=== PATIENT | female | born 1975 | race Caucasian/White ===

== ENCOUNTER 2016-12-12 19:34 | Emergency (ER) | payer OTHER ==
[2016-12-12 20:07] VITALS: TEMP 98; BMI 31.0
[2016-12-12] MEDS ORDERED: SODIUM CHLORIDE 0.9% 1000 ML INFUS.BAG IV ONE (21:11)
--- NOTE | 2016-12-12 21:11 | PDOC ---
History of Present Illness - General History Source: Patient, Old Records Exam Limitations: No Limitations - History of Present Illness Initial Comments: The patient is a 41 year old female with a significant past medical history of migraines, HTN and non-insulin dependent diabetes who presents to the emergency department from Urgent Care with heavy vaginal bleeding for 3 days. The patient states that she has used 6 pads today and that her bleeding is with clots. She states that her LMP was 3 weeks ago and was 2 weeks long which is abnormal for her (normally 5-8 days). The patient reports associated dizziness and headache. The patient did not try to treat symptoms at home. The patient did not report any alleviating or exacerbating factors. The patient denies fever, chills, and sweats. The patient denies vomiting, and diarrhea. The patient denies chest pain, cough, and shortness of breath. OBGYN: Dr. Nash Shabazz [phone] PAST MEDICAL HISTORY: HTN and diabetes PAST SURGICAL HISTORY: No significant history reported FAMILY HISTORY: No pertinent history reported SOCIAL HISTORY: None reported ALLERGIES: As per nursing notes MEDICATIONS: Reviewed <Aj Matthew - Last Filed: 12/12/16 23:36> <Lizzette Casanova - Last Filed: 12/13/16 00:18> - General Chief Complaint: Pain Stated Complaint: VAGINAL BLEEDING Time Seen by Provider: 12/12/16 20:37 Past History <Aj Matthew - Last Filed: 12/12/16 23:36> - Past Medical History Diabetes: Yes (type 2) HTN: Yes - Surgical History Abdominal Surgery: Yes (Diverticulitis) - Immunization History Immunization Up to Date: Yes (FLU 03/2013) - Psycho/Social/Smoking Cessation Hx Anxiety: No Suicidal Ideation: No Smoking Status: No Smoking History: Never smoked Number of Cigarettes Smoked Daily: 0 Information on smoking cessation initiated: No Hx Alcohol Use: No Drug/Substance Use Hx: No Substance Use Type: None <Lizzette Casanova - Last Filed: 12/13/16 00:18> - Past Medical History Allergies/Adverse Reactions: Allergies Allergy/AdvReac Type Severity Reaction Status Date / Time aspirin Allergy Mild Swelling Verified 12/12/16 20:01 morphine Allergy Mild Verified 12/12/16 20:01 Home Medications: Ambulatory Orders Metformin HCl [Glucophage -] 500 mg PO BID 05/15/12 Olmesartan/Hydrochlorothiazide [Benicar Hct 40-12.5 mg Tablet] 1 each PO DAILY 05/15/12 Diphenoxylate 2.5/Atropine.025 [Lomotil -] 1 combo PO Q8H PRN #15 tablet Review of Systems - Review of Systems Able to Perform ROS?: Yes Comments:: GENERAL/CONSTITUTIONAL: No fever or chills. No weakness. HEAD, EYES, EARS, NOSE AND THROAT: No change in vision. No ear pain or discharge. No sore throat. GASTROINTESTINAL: (+) Vaginal bleeding with clots, dizziness. No vomiting, diarrhea or constipation. GENITOURINARY: No dysuria, frequency, or change in urination. CARDIOVASCULAR: No chest pain or shortness of breath. RESPIRATORY: No cough, wheezing, or hemoptysis. MUSCULOSKELETAL: No joint or muscle swelling or pain. No neck or back pain. SKIN: No rash NEUROLOGIC: (+) Headache. No vertigo, loss of consciousness, or change in strength/sensation. ENDOCRINE: No increased thirst. No abnormal weight change. HEMATOLOGIC/LYMPHATIC: No anemia, easy bleeding. ALLERGIC/IMMUNOLOGIC: No hives or skin allergy. <Aj Matthew - Last Filed: 12/12/16 23:36> *Physical Exam - Vital Signs Last Vital Signs Temp Pulse Resp BP Pulse Ox 98.0 F 117 H 20 137/97 98 12/12/16 20:02 12/12/16 20:02 12/12/16 20:02 12/12/16 20:02 12/12/16 20:02 - Physical Exam Comments: GENERAL: Awake, alert, and fully oriented, in no acute distress HEAD: No signs of trauma EYES: PERRLA, EOMI, sclera anicteric, conjunctiva clear ENT: Auricles normal inspection, nares patent, Moist mucosa NECK: Normal ROM, supple, no lymphadenopathy, JVD, or masses LUNGS: Breath sounds equal, clear to auscultation bilaterally. No wheezes, and no crackles HEART: Regular rate and rhythm, normal S1 and S2, no murmurs, rubs or gallops ABDOMEN: (+) Mild suprapubic tenderness. Soft, normoactive bowel sounds. No guarding, no rebound. No masses PELVIC: (+) Blood in osc. No CNT. No adnexal tenderness EXTREMITIES: Normal range of motion, no edema. No clubbing or cyanosis. No cords, erythema, or tenderness NEUROLOGICAL: Normal speech SKIN: Warm, Dry, normal turgor, no rashes or lesions noted. <Aj Matthew - Last Filed: 12/12/16 23:36> - Vital Signs Last Vital Signs Temp Pulse Resp BP Pulse Ox 98.0 F 117 H 20 137/97 98 12/12/16 20:02 12/12/16 20:02 12/12/16 20:02 12/12/16 20:02 12/12/16 20:02 <Lizzette Casaonva - Last Filed: 12/13/16 00:18> ED Treatment Course - LABORATORY CBC & Chemistry Diagram: 12/12/16 21:42 12/12/16 21:42 - RADIOLOGY Radiograph Interpretation: 12/12/16 23:37 EXAM#: TYPE/EXAM: RESULT: [id number] US/TRANSVAGINAL ULTRASOUND US Vaginal bleeding Pelvis ultrasound, transvesical and transvaginal LMP 12/09/2016 The uterus measures 10.5 x 6 and meter in sagittal and AP dimension. Endometrial stripe measures 7.5 mm in thickness which is within normal limits. There are 2 myometrial masses measuring 5.4 x 4 and 1.4 x 1.4 cm consistent with fibroids. The right ovary measures 4.5 x 2.7 cm with a simple cyst/dominant follicle measuring 2.8 x 1.4 cm. Normal vascular flow Left ovary was not visualized. There is no free fluid in the cul-de-sac. Impression: Fibroid uterus, as described above. Normal thickness of the endometrial stripe. Simple cyst/ dominant follicle in the right ovary measuring 2.8 x 1.4 cm. Left ovary was not visualized. Reported By: Tyrone Kraus MD 12/12/16 [id number] <Aj Matthew - Last Filed: 12/12/16 23:36> - LABORATORY CBC & Chemistry Diagram: 12/12/16 21:42 12/12/16 21:42 <Lizzette Casanova - Last Filed: 12/13/16 00:18> Medical Decision Making - Medical Decision Making 12/12/16 21:09 41 yo F with no pmhx here with c/o vaginal bleeding. has had intermittent bleeding last period 4 weeks ago lasted 2 weeks was light. and now has been bleeding for 3 days. bleeding is heavier than normal. with clots. not as had tubes tied. did have nausea and vomited once yesterday. no f/c mild lower abd cramping. not taking any ocp or medication. on exam awake alert, lungs clear. heart reg no mrg. abd soft mild suprapubic ttp , no rebound no guarding. no cva tenderness. plan labs r/o anemia, ucg, ivf, and tvus. <Lizzette Casanova - Last Filed: 12/13/16 00:18> *DC/Admit/Observation/Transfer - Attestations Scribe Attestion: Documentation prepared by Aj Matthew, acting as medical secretary receptionist for Lizzette Casanova MD. <Aj Matthew - Last Filed: 12/12/16 23:36> - Discharge Dispostion Admit: No <Lizzette Casanova - Last Filed: 12/13/16 00:18> - Discharge Dispostion Disposition: HOME - Patient Instructions Printed Discharge Instructions: Uterine Fibroids, DI for Vaginal Bleeding Additional Instructions: you need to follow up with your social science analyst. if you do not have one you can call Dr. Chavez , see referral information. take multivitamin with iron. return for feeling dizzy or any concerns. drink plenty of fluids.
[2016-12-12 21:49] LABS: EOSINOPHIL 0.4 % (0-4.5); MCHC 31.5 g/dl (32.0-36.0); MEAN CELL VOLUME 76.2 fl (80-96); MEAN PLT VOLUME 9.1 fl (7.5-11.1); NEUTROPHILS 60.3 % (42.8-82.8); PLATELET COUNT 335 K/MM3 (134-434); RDW 17.3 % (11.6-15.6); WHITE BLOOD COUNT 13.7 K/mm3 (4.0-10.0)
[2016-12-12 22:20] LABS: ALBUMIN 3.9 g/dl (3.4-5.0); ALK PHOS 71 U/L (45-117); ANION GAP 8 (8-16); BILIRUBIN,TOTAL 0.4 mg/dL (0.2-1.0); CALCIUM 9.2 mg/dL (8.5-10.1); CO2 29 mmol/L (21-32); COCKROFT - GAULT 119.85; CREATININE 0.8 mg/dL (0.55-1.02); GLUCOSE,RANDOM 163 mg/dL (74-106); SGOT/AST 14 U/L (15-37); SGPT/ALT 24 U/L (12-78)
[2016-12-13 00:27] VITALS: BP 118/82; PULSE 98
== END 2016-12-13 00:28 | disposition home or self-care (01) ==
LOC: JER 19:34
DX: D25.9 Leiomyoma of uterus, unspecified (principal); I10 Essential (primary) hypertension; E11.9 Type 2 diabetes mellitus without complications
CPT/HCPCS: 36415; 76830-TC; 80053; 84702; 85025; 99282-25

== ENCOUNTER 2018-05-29 17:45 | Inpatient (IN) | payer MEDICARE, OTHER ==
--- NOTE | 2018-05-29 18:22 | PDOC ---
Rapid Medical Evaluation Medical Evaluation: Allergies Allergy/AdvReac Type Severity Reaction Status Date / Time aspirin Allergy Mild Swelling Verified 12/12/16 20:01 morphine Allergy Mild Verified 12/12/16 20:01 I have performed a brief in-person evaluation of this patient. The patient presents with a chief complaint of: Had tummy tuck 3 months ago (in [place]) C/O infection around belly button since surgery, getting worse 3 weeks ago States her surgeon told her it was nothing Denies fever, n/v On PE, patient with circumferential redness around bellybutton; site with greenish-yellowish discharge, no abdominal TTP, no rebounding or guarding Concern for cellulitis with overlying infection The patient will proceed to the ED for further evaluation. 05/29/18 18:17
[2018-05-29] MEDS ORDERED: ACETAMINOPHEN 325 MG TABLET (FP) PO ONE (18:24)
[2018-05-29] MEDS ORDERED: ACETAMINOPHEN 325 MG TABLET (FP) ONE (18:25)
--- NOTE | 2018-05-29 19:13 | PDOC ---
History of Present Illness - General Chief Complaint: Wound Stated Complaint: INFECTION Time Seen by Provider: 05/29/18 19:13 - History of Present Illness Initial Comments: 43 year old female with a significant past medical history of migraines, HTN, non-insulin dependent diabetes, and s/p 3 months from abdominal cosmetic surgery with redness around her belly button for he past 3 weeks. Patient states that she had a little bit of redness around her bellybutton after the surgery 3 months ago but three weeks ago it became much more red, swollen, warm and occasionally draining sero-purulent material from the belly button. Denies any fevers, chills, nausea, vomiting, diarrhea, constipation, or other symptoms. She attempted to set up an appointment with her surgeon but was unable to schedule one early. 05/29/18 19:17 Past History - Past Medical History Allergies/Adverse Reactions: Allergies Allergy/AdvReac Type Severity Reaction Status Date / Time aspirin Allergy Mild Swelling Verified 12/12/16 20:01 morphine Allergy Mild Verified 12/12/16 20:01 Home Medications: Ambulatory Orders Olmesartan/Hydrochlorothiazide [Benicar Hct 40-12.5 mg Tablet] 1 each PO DAILY 05/15/12 metFORMIN HCL [Glucophage -] 500 mg PO BID 05/15/12 COPD: No Diabetes: Yes (type 2) HTN: Yes - Surgical History Abdominal Surgery: Yes (Diverticulitis) - Immunization History Immunization Up to Date: Yes (FLU 03/2013) - Suicide/Smoking/Psychosocial Hx Smoking Status: No Smoking History: Never smoked Number of Cigarettes Smoked Daily: 0 Hx Alcohol Use: No Drug/Substance Use Hx: No Substance Use Type: None Review of Systems - Review of Systems Constitutional: No: Chills, Diaphoresis, Fever HEENTM: No: Blurred Vision, Tearing Respiratory: No: Cough, Orthopnea, Shortness of Breath Cardiac (ROS): No: Chest Pain, Edema, Irregular Heart Rate ABD/GI: No: Diarrhea, Nausea, Vomiting : No: Burning, Dysuria, Discharge Musculoskeletal: No: Gout, Joint Pain Integumentary: No: Flushing, Lesions, Lumps Neurological: No: Headache, Numbness, Paresthesia Psychiatric: No: Anxiety, Depression Hematologic/Lymphatic: No: Anemia, Blood Clots, Easy Bleeding *Physical Exam - Vital Signs Last Vital Signs Temp Pulse Resp BP Pulse Ox 98.1 F 87 18 156/100 99 05/29/18 18:19 05/29/18 18:19 05/29/18 18:19 05/29/18 18:19 05/29/18 18:19 - Physical Exam General Appearance: Yes: Nourished, Appropriately Dressed. No: Apparent Distress HEENT: positive: EOMI, ROS, Normal ENT Inspection, Normal Voice Neck: positive: Trachea midline, Normal Thyroid, Supple. negative: Tender, Rigid Respiratory/Chest: positive: Lungs Clear, Normal Breath Sounds. negative: Chest Tender, Respiratory Distress, Accessory Muscle Use Cardiovascular: positive: Regular Rhythm, Regular Rate Gastrointestinal/Abdominal: positive: Normal Bowel Sounds, Flat, Soft. negative : Tender Musculoskeletal: positive: Normal Inspection. negative: CVA Tenderness Extremity: positive: Normal Capillary Refill, Normal Inspection, Normal Range of Motion. negative: Tender Integumentary: positive: Normal Color, Dry, Warm, Other (excoriated skin around belly button with draiange from center. Erythema and excoriation extending approximately 8 cms in diameter circumferentially around the belly button.) ED Treatment Course - LABORATORY CBC & Chemistry Diagram: 05/29/18 20:10 05/29/18 20:10 - Medications Given in the ED: ED Medications Discontinued Medications Generic Name Dose Route Start Last Admin Trade Name Freq PRN Reason Stop Dose Admin Acetaminophen 650 mg 05/29/18 18:24 05/29/18 18:27 Tylenol - PO 05/29/18 18:25 650 mg ONCE ONE Administration Medical Decision Making - Medical Decision Making 43 year old female with erythema, swelling, and material drainage from her umbilicus and periumbilical skin concerning for cellulitis. CT abdomen pelvis not demonstrating any deep space infection. Patietn given vanc, zosyn, and topical antifungal. Wound culture and blood culture pending. Patient's surgeon Kavita was consulted and he is OK seeing the patient on Friday at his office. We admitted patient for obs stay for IV abx. 05/29/18 23:50 *DC/Admit/Observation/Transfer Diagnosis at time of Disposition: Cellulitis Qualifiers: Site of cellulitis: trunk Site of cellulitis of trunk: abdominal wall Qualified Code(s): L03.311 - Cellulitis of abdominal wall - Discharge Dispostion Condition at time of disposition: Stable Decision to Admit order: Yes - Referrals - Patient Instructions - Post Discharge Activity
--- NOTE | 2018-05-29 19:16 | PDOC ---
Attending Attestation - Resident Resident Name: Gloria Hatchsissyshell - ED Attending Attestation I have performed the following: I have examined & evaluated the patient, The case was reviewed & discussed with the resident, I agree w/resident's findings & plan - Physicial Exam PE: 05/29/18 20:54 Agree with resident exam. Pt is afebrile. SHe has no rebound and no guarding of her stomach. She has a round ringworm infection like 4 to 5 inch diameter, centered at the umbilicus through which she had surgical instruments placed. Pt has a large healed suprapubic surgical scar. Pt is able to eat and she moved her bowels today (she states that she is chronicallly constipated) No flank pain and no fever. 05/29/18 20:55 - Medical Decision Making 05/29/18 20:47 Labs sent; wound culture sent. Her surgeon is Vimal Walls, who was called to discuss the case. [phone]. 05/29/18 21:13 I spoke to her surgeon, who agrees to see her in his office on Friday morning - likely in [place]. He understands that pt is afebrile and that she has a WBC of 12 with no shift. We will likely admit her for 24 hr observation and IV antibiotic therapy and topical fungal treatment. <Anastasia Cuellar - Last Filed: 05/29/18 21:17> - HPI HPI: 05/29/18 19:55 The patient is a 43-year-old female with a past medical history significant for DM (insulin dependent), and HLD presents to the emergency department with a circular wound to the umbilical region. The patient reports she is s/p tummy tuck surgery on February 19, [address] Vimal Walls in [place]. The patient reports following the surgery, she has had redness and swelling to the incision site that worsened 3 weeks ago. The patient reports 3 weeks ago, she noticed an increased redness and swelling to the surgical incision site. The patient reports she had noticed purulent discharge from inside the belly button , reports shes been having to clean the site frequently. The patient reports itchiness, redness to the site accompanied by diffuse abdominal pain that was 10 /10 when she arrived at the ER, reports relief after 2 Tylenol, denies pain with eating. The patient reports shes been constipated, states its chronic in nature, last bowel movement was 1 day prior, denies hematochezia or melena. 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 Denies fever, chills, nausea, vomiting, diarrhea, weakness, numbness. Allergies: ASA, Morphine Social history: No past or present use of tobacco, alcohol or recreational drugs. Surgical history: [facility] PCP: States shes in the process of switching PCP. Surgeon: Dr. Vimal Walls ([phone]) ([phone]) - Physicial Exam PE: 05/29/18 22:34 GENERAL: Awake, alert, and fully oriented, in no acute distress HEAD: No signs of trauma EYES: PERRLA, EOMI, sclera anicteric, conjunctiva clear ENT: Auricles normal inspection, hearing grossly normal, nares patent, oropharynx clear without exudates. Moist mucosa NECK: Normal ROM, supple, no lymphadenopathy, JVD, or masses LUNGS: Breath sounds equal, clear to auscultation bilaterally. No wheezes, and no crackles HEART: Regular rate and rhythm, normal S1 and S2, no murmurs, rubs or gallops ABDOMEN: + No rebound, guarding, soft, nontender, no flank pain, moving bowels normally, by the umbilicus 4-5 inches circular bright red blood, with excoriated lesion with raised borders and thickened skin throughout. The center of the umbilicus full of pus. EXTREMITIES: Normal range of motion, no edema. No clubbing or cyanosis. No cords, erythema, or tenderness NEUROLOGICAL: Cranial nerves II through XII grossly intact. Normal speech. SKIN: Warm, Dry, normal turgor, no rashes or lesions noted. - Medical Decision Making 05/29/18 19:55 Documentation prepared by Buffy Hill, acting as medical sonographer for Anastasia Cuellar MD. <Buffy Hill - Last Filed: 05/29/18 22:34>
[2018-05-29 20:34] LABS: BASO % 0.6 % (0-2.0); EOS % 1.9 % (0-4.5); HEMATOCRIT 35.8 % (32.4-45.2); HEMOGLOBIN 12.3 GM/dL (10.7-15.3); LYMPH % 26.7 % (8-40); MCH 26.6 pg (25.7-33.7); MCHC 34.3 g/dl (32.0-36.0); MEAN CELL VOLUME 77.6 fl (80-96); MEAN PLT VOLUME 8.6 fl (7.5-11.1); NEUT % 64.8 % (42.8-82.8); PLATELET COUNT 405 K/MM3 (134-434); RBC 4.62 M/mm3 (3.60-5.2); RDW 14.9 % (11.6-15.6); WHITE BLOOD COUNT 12.3 K/mm3 (4.0-10.0)
[2018-05-29] MEDS ORDERED: KETOCONAZOLE 2% CREAM - 60GM TUBE TP ONE (20:36)
[2018-05-29] MEDS ORDERED: PIPERACILLIN/TAZOB 4.5 GM 4.5 GM in DEXTROSE 5%-WATER 100 ML IVPB ONE (20:47)
[2018-05-29] MEDS ORDERED: PIPERACILLIN/TAZOB 4.5 GM 4.5 GM/100 ML BAG IVPB ONE (21:06)
[2018-05-29 21:14] LABS: INR 0.97 (0.83-1.09); PROTHROMBIN TIME (PATIENT) 11.5 SEC (9.7-13.0)
[2018-05-29 21:15] LABS: ALBUMIN 3.9 g/dl (3.4-5.0); ALK PHOS 74 U/L (45-117); ANION GAP 10 MMOL/L (8-16); BILIRUBIN,TOTAL 0.2 mg/dL (0.2-1); BLOOD UREA NITROGEN 21 mg/dL (7-18); CALCIUM 8.9 mg/dL (8.5-10.1); CHLORIDE 101 mmol/L (98-107); CO2 28 mmol/L (21-32); CREATININE 0.8 mg/dL (0.55-1.3); GLUCOSE,RANDOM 105 mg/dL (74-106); POTASSIUM 4.6 mmol/L (3.5-5.1); SGOT/AST 13 U/L (15-37); SGPT/ALT 21 U/L (13-61); SODIUM 139 mmol/L (136-145); TOT PROT 8.3 g/dl (6.4-8.2)
--- NOTE | 2018-05-29 23:37 | PN ---
Teaching Attending Note Name of Resident: Jayashree David ATTENDING PHYSICIAN STATEMENT I saw and evaluated the patient. I reviewed the resident's note and discussed the case with the resident. I agree with the resident's findings and plan as documented. SUBJECTIVE: Patient is a 43 year old woman with a significant past medical history of migraines, HTN, non-insulin dependent diabetes, and s/p 3 months from abdominal cosmetic surgery with redness around her belly button for he past 3 weeks. Patient states that she had a little bit of redness around her bellybutton after the surgery 3 months ago but three weeks ago it became much more red, swollen, warm and occasionally draining sero-purulent material from the belly button. Denies any fevers, chills, nausea, vomiting, diarrhea, constipation, or other symptoms. She attempted to set up an appointment with her surgeon but was unable to schedule one early. OBJECTIVE: Alert Vital Signs Period Temp Pulse Resp BP Sys/Vega Pulse Ox Last 24 Hr 98.1 F 87 18 156/100 99 HEENT: No Jaundice, eye redness or discharge, PERRLA, EOMI. Normocephalic, atraumatic. External ears are normal and hearing is grossly intact. No nasal discharge. Neck: Supple, nontender. No palpable adenopathy or thyromegaly. No JVD Chest: Good effort. Clear to auscultation and percussion. Heart: Regular. No S3, rub or murmur Abdomen: Not distended, soft, nontender and no HSM. Discharge from umblical wound; periumblical cellulitis and excoriations; suprapubic rash. No rebound or guarding. Normoactive bowel sounds. Ext: Peripheral pulses intact. No leg edema. Skin: Warm and dry. No petechiae, rash or ecchymosis. Neuro: Alert. Oriented x3. CN 2-12 grossly intact. Sensation grossly intact in all four extremities and DTR are symmetric. Home Medications Medication Instructions Recorded Olmesartan/Hydrochlorothiazide 1 each PO DAILY 05/15/12 [Benicar Hct 40-12.5 mg Tablet] metFORMIN HCL [Glucophage -] 500 mg PO BID 05/15/12 Abnormal Lab Results 05/29/18 05/29/18 20:10 20:10 WBC 12.3 H MCV 77.6 L BUN 21 H AST 13 L Total Protein 8.3 H ASSESSMENT AND PLAN: 1. Periumblical cellulitis - CT scan does not show any abscess or gas collection. Wound culture sent and UA ordered. Will treat with IV vanco and zosyn. Consult Plastic Surgery and ID. Restart home antihypertensive drugs to attain normotension and stress nonpharmacologic measures to control hypertesnion. 2. DM - For now, we will hold the home diabetes drugs and implement sliding scale insulin regimen. Provide comprehensive diabetes care with patient teaching and counseling about the importance of euglycemia, eye care and foot care. 3. DVT prophylaxis - Lovenox 40 mg SQ q 24 hours. 4. Advance directives - Full code
[2018-05-30] MEDS ORDERED: VANCOMYCIN 1,250 MG in DEXTROSE 5%-WATER - 250 ML IVPB SCH (01:25)
--- NOTE | 2018-05-30 01:36 | HP ---
CHIEF COMPLAINT: periumbilical cellulitis PCP: HISTORY OF PRESENT ILLNESS: 43 y/o F with PMH migraines (worse in past), HTN, NIDDM, diverticulitis (16 yrs ago), who presents to the ED c/o worsening periumbilical erythema over the past three weeks. As per pt, on February 20, she had a tummy tuck procedure done by Dr. Walls from [facility]. Shortly after, she was placed on abx course for 1 week (does not know name of abx). However, during this time, she noted yellow pus and drainage from her umbilicus. States that her surgeon did not change her course of treatment. Most recently, over the last three weeks, she has noted increased drainage from her umbilicus and erythema, excoriation in her periumbilical area. It has been a/w generalized pruritis all over her body. Pt came to the ED for further evaluation. She denies ALEXANDER, fever, chills, SOB, chest pain or pressure, or changes in urinary or bowel function. ER course was notable for: (1) Tylenol 650mg x 1 (2) zosyn x 1 (3) ketoconazole cream Recent Travel: denies PAST MEDICAL HISTORY: as above PAST SURGICAL HISTORY: tummy tuck (Feb 20), LLE surgery - "injury as a child" Social History: works as a medical technologist microbiology Smoking: denies Alcohol: denies Drugs: denies Family History: father - renal failure, multiple family members- DM, HTN. Allergies aspirin Allergy (Mild, Verified 12/12/16 20:01) Swelling morphine Allergy (Mild, Verified 12/12/16 20:01) HOME MEDICATIONS: Home Medications Medication Instructions Recorded Olmesartan/Hydrochlorothiazide 1 each PO DAILY 05/15/12 [Benicar Hct 40-12.5 mg Tablet] metFORMIN HCL [Glucophage -] 500 mg PO BID 05/15/12 medications need to be verified with pharmacy in the AM REVIEW OF SYSTEMS CONSTITUTIONAL: Absent: fever, chills, diaphoresis, generalized weakness, malaise, loss of appetite, weight change HEENT: Absent: rhinorrhea, nasal congestion, throat pain, throat swelling, difficulty swallowing, mouth swelling, ear pain, eye pain, visual changes CARDIOVASCULAR: Absent: chest pain, syncope, palpitations, irregular heart rate, lightheadedness , peripheral edema RESPIRATORY: Absent: cough, shortness of breath, dyspnea with exertion, orthopnea, wheezing, stridor, hemoptysis GASTROINTESTINAL: Absent: abdominal pain, abdominal distension, nausea, vomiting, diarrhea, constipation, melena, hematochezia GENITOURINARY: Absent: dysuria, frequency, urgency, hesitancy, hematuria, flank pain, genital pain MUSCULOSKELETAL: Absent: myalgia, arthralgia, joint swelling, back pain, neck pain SKIN: +rash Absent: itching, pallor HEMATOLOGIC/IMMUNOLOGIC: Absent: easy bleeding, easy bruising, lymphadenopathy, frequent infections ENDOCRINE: Absent: unexplained weight gain, unexplained weight loss, heat intolerance, cold intolerance NEUROLOGIC: Absent: headache, focal weakness or paresthesias, dizziness, unsteady gait, seizure, mental status changes, bladder or bowel incontinence PSYCHIATRIC: Absent: anxiety, depression, suicidal or homicidal ideation, hallucinations. PHYSICAL EXAMINATION Vital Signs - 24 hr 05/29/18 18:19 Temperature 98.1 F Pulse Rate 87 Respiratory 18 Rate Blood Pressure 156/100 O2 Sat by Pulse 99 Oximetry (%) GENERAL: Pleasant. Awake, alert, and fully oriented, in no acute distress. HEAD: Normal with no signs of trauma. EYES: Pupils equal, round and reactive to light, extraocular movements intact, sclera anicteric EARS, NOSE, THROAT: Ears normal, nares patent, oropharynx clear without exudates NECK: Normal range of motion, supple . No cervical lymphadenopathy. LUNGS: Breath sounds equal, clear to auscultation bilaterally. HEART: Regular rate and rhythm, normal S1 and S2 without murmur, rub or gallop. ABDOMEN: +diffusely TTP, without guarding or rigidity. +periumbilical excoriation, with erythema. pus expressed MUSCULOSKELETAL: Normal range of motion at all joints. LOWER EXTREMITIES: 2+ pt pulses, warm, well-perfused. No calf tenderness. No peripheral edema. +LLE: vertical scar (past surgery) NEUROLOGICAL: Cranial nerves II-XII intact. Normal speech. PSYCHIATRIC: Cooperative. Laboratory Results - last 24 hr 05/29/18 05/29/18 05/29/18 20:10 20:10 20:10 WBC 12.3 H RBC 4.62 Hgb 12.3 Hct 35.8 MCV 77.6 L MCH 26.6 D MCHC 34.3 RDW 14.9 D Plt Count 405 D MPV 8.6 Absolute Neuts (auto) 8.0 Neutrophils % 64.8 Lymphocytes % 26.7 Monocytes % 6.0 Eosinophils % 1.9 D Basophils % 0.6 Nucleated RBC % 0 PT with INR 11.50 INR 0.97 Sodium 139 Potassium 4.6 Chloride 101 Carbon Dioxide 28 Anion Gap 10 BUN 21 H Creatinine 0.8 Creat Clearance w eGFR > 60 Random Glucose 105 Calcium 8.9 Total Bilirubin 0.2 AST 13 L ALT 21 Alkaline Phosphatase 74 Total Protein 8.3 H Albumin 3.9 Urine HCG, Qual Blood Type Antibody Screen ASSESSMENT/PLAN: 43 y/o F with PMH migraines (worse in past), HTN, NIDDM, diverticulitis (16 yrs ago), who presents to the ED c/o worsening periumbilical erythema over the past three weeks. #Periumbilical cellulitis -with white count. however afebrile, hemodynamically stable. occurred after tummy tuck procedure -CTAP without abscess. with evidence of subcutaneous stranding/?cellulitis -will tx with broad spectrum for now; vanco 1.25g IVPB qd, zosyn 3.375g IVPB q8h , pending c+s -f/u blood cx, wound cx, UA -ID consult: Dr. Martinez -surgery consult: Dr. Benitez; to r/o any intervention #HTN- uncontrolled -possible increase 2/2 infection. -for now, will start lisinopril 20mg PO BID, HCTZ 12.5mg PO in AM -will need to verify home meds from pharmacy in AM #NIDDM -ISS ACHS -BGM #F/E/N IV NS 100 cc/hr continue to follow lytes NPO for time being #PPX DVT: Lovenox 40 SQ qd #Dispo med surg observation Visit type - Emergency Visit Emergency Visit: Yes ED Registration Date: 05/29/18 Care time: The patient presented to the Emergency Department on the above date and was hospitalized for further evaluation of their emergent condition. - New Patient This patient is new to me today: Yes Date on this admission: 05/30/18 - Critical Care Critical Care patient: No
[2018-05-30] MEDS ORDERED: VANCOMYCIN 1,250 MG in DEXTROSE 5%-WATER - 250 ML IVPB ONE (03:00)
[2018-05-30] MEDS: SODIUM CHLORIDE 1,000 ML IV SCH ×2 (03:19→21:54)
[2018-05-30] MEDS: LISINOPRIL 20 MG TABLET (FP) PO SCH ×3 (03:19→21:54)
[2018-05-30 04:06] VITALS: BMI 27.6
[2018-05-30] MEDS ORDERED: PIPERACILLIN/TAZOB 3.375 GM 3.375 GM in DEXTROSE 5%-WATER - 50 ML IVPB SCH (05:00)
[2018-05-30] MEDS ORDERED: PIPERACILLIN/TAZOBACTAM 3.375 GM VIAL IVPB ONE ×3 (06:08→17:24)
[2018-05-30] MEDS ORDERED: DEXTROSE 5%-WATER - 50 ML IVPB ONE ×3 (06:08→17:24)
[2018-05-30] MEDS ORDERED: PIPERACILLIN/TAZOB 3.375 GM 3.375 GM in DEXTROSE 5%-WATER - 50 ML IVPB ONE (06:15)
[2018-05-30] MEDS: ENOXAPARIN NA (PORCINE) 40 MG/0.4 ML DISP.SYRIN SQ SCH ×2 (06:28→11:01)
[2018-05-30] MEDS: INSULIN SLIDING SCALE (NOVOLOG) 1 VIAL SQ SCH ×4 (06:32→21:53)
[2018-05-30 07:57] LABS: BASO % 0.6 % (0-2.0); HEMATOCRIT 33.7 % (32.4-45.2); HEMOGLOBIN 10.8 GM/dL (10.7-15.3); LYMPH % 25.5 % (8-40); MCH 25.2 pg (25.7-33.7); MEAN CELL VOLUME 78.9 fl (80-96); MEAN PLT VOLUME 8.4 fl (7.5-11.1); MONO % 6.4 % (3.8-10.2); NEUT % 64.5 % (42.8-82.8); PLATELET COUNT 330 K/MM3 (134-434); RBC 4.28 M/mm3 (3.60-5.2); RDW 14.8 % (11.6-15.6); WHITE BLOOD COUNT 10.2 K/mm3 (4.0-10.0)
[2018-05-30 09:01] LABS: ANION GAP 12 MMOL/L (8-16); BLOOD UREA NITROGEN 17 mg/dL (7-18); CALCIUM 8.3 mg/dL (8.5-10.1); CHLORIDE 99 mmol/L (98-107); CO2 25 mmol/L (21-32); CREATININE 0.6 mg/dL (0.55-1.3); GLUCOSE,RANDOM 127 mg/dL (74-106); MAGNESIUM 1.7 mg/dL (1.8-2.4); POTASSIUM 3.8 mmol/L (3.5-5.1); SODIUM 136 mmol/L (136-145)
--- NOTE | 2018-05-30 09:46 | PN ---
Progress Note (short form) - Note Progress Note: Vital Signs Temperature 98.3 F 05/30/18 05:57 Pulse Rate 91 H 05/30/18 05:57 Respiratory Rate 18 05/30/18 05:57 Blood Pressure 115/70 05/30/18 05:57 O2 Sat by Pulse Oximetry (%) 97 05/30/18 01:22 HEENT: No Jaundice, eye redness or discharge, PERRLA, EOMI. Normocephalic, atraumatic. Neck: Supple, nontender. No palpable adenopathy or thyromegaly. No JVD Chest: Good effort. Clear to auscultation and percussion. Heart: Regular. S1S2 positive, No S3, rub or murmur Abdomen: Not distended, soft, nontender and no HSM. Discharge from umbilical area ,with rash around it. Normoactive bowel sounds. Ext: Peripheral pulses intact. No leg edema. Skin: Warm and dry. No petechiae, rash or ecchymosis. Neuro: Alert. Oriented x3. CN 2-12 grossly intact. Sensation grossly intact in all four extremities and DTR are symmetric. CBCD WBC 10.2 K/mm3 (4.0-10.0) H 05/30/18 07:15 RBC 4.28 M/mm3 (3.60-5.2) 05/30/18 07:15 Hgb 10.8 GM/dL (10.7-15.3) 05/30/18 07:15 Hct 33.7 % (32.4-45.2) 05/30/18 07:15 MCV 78.9 fl (80-96) L 05/30/18 07:15 MCHC 32.0 g/dl (32.0-36.0) 05/30/18 07:15 RDW 14.8 % (11.6-15.6) 05/30/18 07:15 Plt Count 330 K/MM3 (134-434) 05/30/18 07:15 MPV 8.4 fl (7.5-11.1) 05/30/18 07:15 CMP Sodium 136 mmol/L (136-145) 05/30/18 07:15 Potassium 3.8 mmol/L (3.5-5.1) 05/30/18 07:15 Chloride 99 mmol/L (98-107) 05/30/18 07:15 Carbon Dioxide 25 mmol/L (21-32) 05/30/18 07:15 Anion Gap 12 MMOL/L (8-16) 05/30/18 07:15 BUN 17 mg/dL (7-18) 05/30/18 07:15 Creatinine 0.6 mg/dL (0.55-1.3) 05/30/18 07:15 Creat Clearance w eGFR > 60 (>60) 05/30/18 07:15 Random Glucose 127 mg/dL (74-106) H 05/30/18 07:15 Calcium 8.3 mg/dL (8.5-10.1) L 05/30/18 07:15 Total Bilirubin 0.2 mg/dL (0.2-1) 05/29/18 20:10 AST 13 U/L (15-37) L 05/29/18 20:10 ALT 21 U/L (13-61) 05/29/18 20:10 Alkaline Phosphatase 74 U/L (45-117) 05/29/18 20:10 Total Protein 8.3 g/dl (6.4-8.2) H 05/29/18 20:10 Albumin 3.9 g/dl (3.4-5.0) 05/29/18 20:10 Current Medications Generic Name Dose Route Start Last Admin Trade Name Freq PRN Reason Stop Dose Admin Enoxaparin Sodium 40 mg 05/30/18 06:00 05/30/18 06:28 Lovenox - SQ 40 mg DAILY JAIR Administration Hydrochlorothiazide 12.5 mg 05/30/18 10:00 Hctz - PO DAILY JAIR Sodium Chloride 1,000 mls @ 100 mls/hr 05/30/18 01:30 05/30/18 03:19 Normal Saline - IV 100 mls/hr ASDIR JAIR Administration Vancomycin HCl 1,250 mg/ 250 mls @ 250 mls/2 hr 05/30/18 01:25 Dextrose IVPB Q24H JAIR Protocol Piperacillin Sod/Tazobactam 50 mls @ 100 mls/hr 05/30/18 05:00 Sod 3.375 gm/ Dextrose IVPB Q8H-IV JAIR Protocol Insulin Aspart 1 vial 05/30/18 07:00 05/30/18 06:32 Novolog Vial Sliding Scale - SQ Not Given ACHS [facility] Protocol Lisinopril 20 mg 05/30/18 01:30 05/30/18 03:19 Prinivil PO 20 mg BID [facility] Administration Home Medications Medication Instructions Recorded Olmesartan/Hydrochlorothiazide 1 each PO DAILY 05/15/12 [Benicar Hct 40-12.5 mg Tablet] metFORMIN HCL [Glucophage -] 500 mg PO BID 05/15/12 A/P: 43 y/o F with PMH migraines (worse in past), HTN, NIDDM, diverticulitis (16 yrs ago), who presents to the ED c/o worsening periumbilical erythema over the past three weeks. #Acute abdominal wall cellulitis s/p Tummy tack 3 months ago, cx is pending, on IV antibiotic zosyn and Vanco.continue , id on the case #HTN: uncontrolled continue Lisinopril and Hctz #NIDDM: ISS ACHS; BGM, hold metformin for now, check hgb a1c DVT px: Lovenox 40 SQ qd Plastic surgeon: Vimal Walls [phone] Visit type - Emergency Visit Emergency Visit: Yes ED Registration Date: 05/30/18 Care time: The patient presented to the Emergency Department on the above date and was hospitalized for further evaluation of their emergent condition. - New Patient This patient is new to me today: Yes Date on this admission: 05/30/18 - Critical Care Critical Care patient: No - Discharge Referral Referred to [facility] Med P.C.: No
[2018-05-30] MEDS: HYDROCHLOROTHIAZIDE 12.5 MG CAPSULE (FP) PO SCH (11:01)
--- NOTE | 2018-05-30 11:41 | CONSULT ---
- Consultation REQUESTING PROVIDER: ER MD CONSULT REQUEST: We have been asked to surgically evaluate this patient for abnormalities of the abdominal wall after abdominoplasty 3 months ago. PCP:Linda Montes HISTORY OF PRESENT ILLNESS: Worsening abdominal wall skin abnormality after abdominoplasty [address] Vimal Walls in [facility]; she has not seen him for this. PMHx: NIDDM/HTN PSHx: colon resection for diverticular disease; abdominoplasty Home Medications Medication Instructions Recorded Olmesartan/Hydrochlorothiazide 1 each PO DAILY 05/15/12 [Benicar Hct 40-12.5 mg Tablet] metFORMIN HCL [Glucophage -] 500 mg PO BID 05/15/12 Allergies Allergy/AdvReac Type Severity Reaction Status Date / Time aspirin Allergy Mild Swelling Verified 12/12/16 20: morphine Allergy Mild Verified 12/12/16 20:01 PHYSICAL EXAM: GENERAL: Awake, alert, and fully oriented, in no acute distress. HEAD: Normal with no signs of trauma. EYES: PERRL, sclera anicteric, conjunctiva clear. NECK: Normal ROM, supple without lymphadenopathy, JVD, or masses. ABDOMEN: Soft, nontender, not distended, normoactive bowel sounds, no guarding, no rebound, no masses. No organomegaly. Well circumscribed ? fungal ? skin rash around the umbilicus for # cm.; neoumbilicus w/some ? purulent ? dranage ? ; healed lower abdomuinal scar. MUSCULOSKELETAL: Normal ROM at all joints. No bony deformities or tenderness. No CVA tenderness. UPPER EXTREMITIES: 2+ pulses, warm, well-perfused. No cyanosis. Cap refill <2 seconds. No peripheral edema. LOWER EXTREMITIES: 2+ pulses, warm, well-perfused. No calf tenderness. No peripheral edema. NEUROLOGICAL: Normal speech, gait not observed. PSYCH: Cooperative. Good eye contact. Appropriate mood and affect. SKIN: Warm, dry, normal turgor, no rashes or lesions noted. Vital Signs Temperature 98.3 F 05/30/18 05:57 Pulse Rate 91 H 05/30/18 05:57 Respiratory Rate 18 05/30/18 05:57 Blood Pressure 115/70 05/30/18 05:57 O2 Sat by Pulse Oximetry (%) 97 05/30/18 01:22 Lab Results WBC 10.2 K/mm3 (4.0-10.0) H 05/30/18 07:15 RBC 4.28 M/mm3 (3.60-5.2) 05/30/18 07:15 Hgb 10.8 GM/dL (10.7-15.3) 05/30/18 07:15 Hct 33.7 % (32.4-45.2) 05/30/18 07:15 MCV 78.9 fl (80-96) L 05/30/18 07:15 MCHC 32.0 g/dl (32.0-36.0) 05/30/18 07:15 RDW 14.8 % (11.6-15.6) 05/30/18 07:15 Plt Count 330 K/MM3 (134-434) 05/30/18 07:15 Sodium 136 mmol/L (136-145) 05/30/18 07:15 Potassium 3.8 mmol/L (3.5-5.1) 05/30/18 07:15 Chloride 99 mmol/L (98-107) 05/30/18 07:15 Carbon Dioxide 25 mmol/L (21-32) 05/30/18 07:15 Anion Gap 12 MMOL/L (8-16) 05/30/18 07:15 BUN 17 mg/dL (7-18) 05/30/18 07:15 Creatinine 0.6 mg/dL (0.55-1.3) 05/30/18 07:15 Random Glucose 127 mg/dL (74-106) H 05/30/18 07:15 Calcium 8.3 mg/dL (8.5-10.1) L 05/30/18 07:15 Blood Type O POSITIVE 05/29/18 22:52 Antibody Screen Negative 05/29/18 20:10 INR 0.97 (0.83-1.09) 05/29/18 20:10 CT a/p reviewed IMP:abdominal wall rash involving area of previous surgery/ ? contact dermatitis with secondary cellulitis vs. other and abdominal wall hernias seen on CT scan a/p and draining umbilicus. PLAN: Would feed patient and have patient seen by her Plastic Surgeon; she tells me she has an appointment to see him tomorrow. I do not believe patient requires ongoing inpatient care. Jayme Benitez MD FACS
--- NOTE | 2018-05-30 11:58 | EKG ---
Test Reason : Blood Pressure : / mmHG Vent. Rate : 074 BPM Atrial Rate : 074 BPM P-R Int : 158 ms QRS Dur : 084 ms QT Int : 418 ms P-R-T Axes : 038 -07 033 degrees QTc Int : 463 ms NORMAL SINUS RHYTHM NORMAL ECG WHEN COMPARED WITH ECG OF 23-NOV-2012 16:41, VENT. RATE HAS DECREASED BY 50 BPM Confirmed by PAOLA ROSARIO MD ([id number]) on 05/30/2018 11:58:17 AM Referred By: Confirmed By:PAOLA ROSARIO MD
--- NOTE | 2018-05-30 12:57 | PN ---
Progress Note (short form) - Note Progress Note: ID Consult dictated Cellulitis/ soft tissue abscess abdominal wall S/P abdominoplasty NIDDM Await c/s Rmpiric vancomycin/ zosyn
--- NOTE | 2018-05-30 13:44 | CONS ---
DATE OF CONSULTATION: DATE OF DICTATION: 05/30/2018 HISTORY OF PRESENT ILLNESS: The patient is a 43-year-old noninsulin-dependent diabetic evaluated for abdominal wall cellulitis and soft tissue abscess. The patient underwent an abdominoplasty 3 months ago at a hospital in [place]. She reports that for the past 3 weeks she has had worsening erythema, warmth and swelling in the periumbilical area. She began to notice purulent drainage from the center of the wound. She denies any associated fever or chills. She presented to the emergency room where she was found to have cellulitis of the abdominal wall and soft tissue abscess. A CAT scan showed no focal collection. She denies prior history of serious soft tissue infection or history of MRSA. PAST MEDICAL HISTORY: Positive for noninsulin-dependent diabetes mellitus, hypertension, migraine headaches. ALLERGIES: ASPIRIN and MORPHINE. MEDICATIONS: Include Benicar and Glucophage. LABORATORY DATA: White count on admission 12.3, hematocrit 33.7, platelet count 330. BUN 17, creatinine 0.6. PHYSICAL EXAMINATION:General: She is awake and alert, in no acute distress. Vital Signs: Temperature 98.3, blood pressure 115/70, pulse 91, regular, respirations 18 per minute. HEENT: Sclerae are anicteric.Cardiac: Heart sounds S1, S2. Lungs: Clear. Abdomen: Obese. There is a healed transverse surgical scar present in the lower abdomen which is well healed. In the area of the umbilicus there is a 10-cm circular area of erythema, warmth and swelling with a central area containing an open wound from which purulent fluid is expressible. Extremities: Negative for edema. IMPRESSION: 1. Cellulitis/soft tissue abscess of the abdominal wall. 2. Status post abdominoplasty. 3. Noninsulin-dependent diabetes mellitus. RECOMMENDATIONS: Await blood and wound culture results. Empiric antibiotic coverage with vancomycin and Zosyn. Surgical evaluation. Patient states that she is unsure of whether or not there is mesh underlying the abdominal wound and has an appointment to follow up with her plastic surgeon. Thank you for the kind referral. JAIME HILL M.D. [id number]
[2018-05-30] MEDS: PIPERACILLIN/TAZOB 3.375 GM 3.375 GM in DEXTROSE 5%-WATER - 50 ML IVPB SCH ×2 (14:17→18:07)
[2018-05-30] MEDS: VANCOMYCIN 1 GRAM (PRE-DOCKED) 1,000 MG/250 ML BAG IVPB SCH (16:05)
[2018-05-30 21:43] LABS: URINE APPEARANCE CLEAR; URINE BILIRUBIN NEGATIVE (<2.0 mg/dL); URINE COLOR LTYELLOW; URINE GLUCOSE (UA) NEGATIVE (NEGATIVE); URINE KETONE NEGATIVE (NEGATIVE); URINE LEUK ESTERASE NEGATIVE (NEGATIVE); URINE NITRITE NEGATIVE (NEGATIVE); URINE PROTEIN NEGATIVE (NEGATIVE); URINE UROBILINOGEN NEGATIVE mg/dL (0.2-1.0)
[2018-05-31] MEDS ORDERED: DEXTROSE 5%-WATER - 50 ML IVPB ONE ×3 (02:28→16:50)
[2018-05-31] MEDS ORDERED: PIPERACILLIN/TAZOBACTAM 3.375 GM VIAL IVPB ONE ×3 (02:28→16:50)
[2018-05-31] MEDS: PIPERACILLIN/TAZOB 3.375 GM 3.375 GM in DEXTROSE 5%-WATER - 50 ML IVPB SCH ×3 (02:59→17:05)
[2018-05-31] MEDS: VANCOMYCIN 1 GRAM (PRE-DOCKED) 1,000 MG/250 ML BAG IVPB SCH ×2 (04:01→15:41)
[2018-05-31] MEDS: INSULIN SLIDING SCALE (NOVOLOG) 1 VIAL SQ SCH ×4 (06:08→21:37)
[2018-05-31] MEDS: LISINOPRIL 20 MG TABLET (FP) PO SCH ×2 (09:51→21:38)
[2018-05-31] MEDS: HYDROCHLOROTHIAZIDE 12.5 MG CAPSULE (FP) PO SCH (09:51)
[2018-05-31] MEDS: ENOXAPARIN NA (PORCINE) 40 MG/0.4 ML DISP.SYRIN SQ SCH (09:52)
--- NOTE | 2018-05-31 11:46 | PN ---
Physical Exam: SUBJECTIVE: Patient seen and examined. Pt. states last BM 3 days ago. Pt. endorses itchiness and some constipation. Pt. denies chest pain, fever or chills. OBJECTIVE: Vital Signs Period Temp Pulse Resp BP Sys/Vega Pulse Ox Last 24 Hr 98.2 F-98.8 F 69-89 18-20 101-115/64-81 97-97 GENERAL: The patient is awake, alert, and fully oriented, in no acute distress. EYES: Sclera anicteric, conjunctiva clear. No ptosis. ENT: Ears normal, nares patent, oropharynx clear without exudates, moist mucous membranes. LUNGS: Breath sounds equal, clear to auscultation bilaterally, no wheezes, no crackles, no accessory muscle use. HEART: Regular rate and rhythm, S1, S2 without murmur ABDOMEN: Soft, mild tenderness to palpation?(no wincing noted), nondistended, normoactive bowel sounds, no guarding, no rebound, periumbilical lesion 4in. x 4 in. crusted with central ulceration purulent discharge, old scar? EXTREMITIES: 2+ dorsal pedal pulses, warm, well-perfused, no edema. NEUROLOGICAL: Normal speech, gait not observed. PSYCH: Normal mood, normal affect. SKIN: Warm, dry, normal turgor, lesion noted as above Laboratory Results - last 24 hr 05/30/18 05/30/18 05/30/18 11:34 16:12 19:00 POC Glucometer 124 126 Urine Color Ltyellow Urine Appearance Clear Urine pH 5.0 Ur Specific [place] 1.017 Urine Protein Negative Urine Glucose (UA) Negative Urine Ketones Negative Urine Blood Negative Urine Nitrite Negative Urine Bilirubin Negative Urine Urobilinogen Negative Ur Leukocyte Esterase Negative 05/30/18 05/31/18 05/31/18 21:52 05:57 11:22 POC Glucometer 133 143 171 Urine Color Urine Appearance Urine pH Ur Specific [place] Urine Protein Urine Glucose (UA) Urine Ketones Urine Blood Urine Nitrite Urine Bilirubin Urine Urobilinogen Ur Leukocyte Esterase Active Medications Current Medications Docusate Sodium (Colace -) 100 mg PO DAILY COUNTS INCLUDE 234 BEDS AT THE [facility] Enoxaparin Sodium (Lovenox -) 40 mg SQ DAILY COUNTS INCLUDE 234 BEDS AT THE [facility] Last Admin: 05/31/18 09:52 Dose: 40 mg Hydrochlorothiazide (Hctz -) 12.5 mg PO DAILY COUNTS INCLUDE 234 BEDS AT THE [facility] Last Admin: 05/31/18 09:51 Dose: 12.5 mg Sodium Chloride (Normal Saline -) 1,000 mls @ 100 mls/hr IV ASDIR COUNTS INCLUDE 234 BEDS AT THE [facility] Last Admin: 05/30/18 21:54 Dose: 100 mls/hr Vancomycin HCl (Vancomycin (Pre-Docked)) 1,000 mg in 250 mls @ 166.667 mls/hr IVPB Q12H JAIR; Protocol Last Admin: 05/31/18 04:01 Dose: 166.667 mls/hr Piperacillin Sod/Tazobactam (Sod 3.375 gm/ Dextrose) 50 mls @ 100 mls/hr IVPB Q8H-IV JAIR; Protocol Last Admin: 05/31/18 09:51 Dose: 100 mls/hr Insulin Aspart (Novolog Vial Sliding Scale -) 1 vial SQ ACHS COUNTS INCLUDE 234 BEDS AT THE [facility]; Protocol Last Admin: 05/31/18 06:08 Dose: Not Given Lisinopril (Prinivil) 20 mg PO BID COUNTS INCLUDE 234 BEDS AT THE [facility] Last Admin: 05/31/18 09:51 Dose: 20 mg Senna (Senna -) 1 tab PO HS COUNTS INCLUDE 234 BEDS AT THE [facility] Home Medications Medication Instructions Recorded Olmesartan/Hydrochlorothiazide 1 each PO DAILY 05/15/12 [Benicar Hct 40-12.5 mg Tablet] metFORMIN HCL [Glucophage -] 500 mg PO BID 05/15/12 ASSESSMENT/PLAN: 43 y.o. F w/ PMHx. of Tummy tuck (~3 months ago), HTN, NIDDM, diverticulitis ( 16 yrs ago), migraines (worse in past) who presented to the ED w/ worsening raquel -umbilical erythema over the past three weeks. #Periumbilical cellulitis-stable Now w/o white count, afebrile, hemodynamically stable; occurred after tummy tuck procedure CTAP without abscess, with evidence of subcutaneous stranding/?cellulitis c/w Vanco 1.25g IVPB qd, Zosyn 3.375g IVPB q8h-(started 05/30/18) for broad spectrum, pending c+s f/u blood cx, wound cx: NTD UA- ID consult: Dr. Martinez/ [place], will f/u on PO antibiotic conversion or if there is a need for PICC line. surgery consult: Dr. Benitez- no general surgery intervention, f/u with plastic surgery #HTN- stable c/w lisinopril 20mg PO BID c/w HCTZ 12.5mg PO #NIDDM ISS ACHS BGM #F/E/N IV NS 100 cc/hr continue to follow lytes Na+ restricted/Diabetic Diet #DVT Ppx. Lovenox 40 SQ Visit type - Emergency Visit Emergency Visit: Yes ED Registration Date: 05/30/18 Care time: The patient presented to the Emergency Department on the above date and was hospitalized for further evaluation of their emergent condition. - New Patient This patient is new to me today: Yes Date on this admission: 05/31/18 - Critical Care Critical Care patient: No - Discharge Referral Referred to [facility] Med P.C.: No
[2018-05-31] MEDS: DOCUSATE SODIUM 100 MG CAPSULE (FP) PO SCH (17:06)
--- NOTE | 2018-05-31 18:03 | PN ---
Teaching Attending Note Name of Resident: Ramesh Vargas ATTENDING PHYSICIAN STATEMENT I saw and evaluated the patient. I reviewed the resident's note and discussed the case with the resident. I agree with the resident's findings and plan as documented. SUBJECTIVE: Patient is feeling better presented with abdominal wall infection. OBJECTIVE: Vital Signs Temperature 98.5 F 05/31/18 14:24 Pulse Rate 77 05/31/18 14:24 Respiratory Rate 18 05/31/18 14:24 Blood Pressure 136/91 05/31/18 14:24 O2 Sat by Pulse Oximetry (%) 97 05/31/18 05:00 HEENT: No Jaundice, eye redness or discharge, PERRLA, EOMI. Normocephalic, atraumatic. Neck: Supple, nontender. No palpable adenopathy or thyromegaly. No JVD Chest: Good effort. Clear to auscultation and percussion. Heart: Regular. S1S2 positive, No S3, rub or murmur Abdomen: Not distended, soft, Discharge from umbilical area ,with rash around it. Normoactive bowel sounds. Ext: Peripheral pulses intact. No leg edema. Skin: Warm and dry. No petechiae, rash or ecchymosis. Neuro: Alert. Oriented x3. CN 2-12 grossly intact. Sensation grossly intact in all four extremities and DTR are symmetric. CBCD WBC 10.2 K/mm3 (4.0-10.0) H 05/30/18 07:15 RBC 4.28 M/mm3 (3.60-5.2) 05/30/18 07:15 Hgb 10.8 GM/dL (10.7-15.3) 05/30/18 07:15 Hct 33.7 % (32.4-45.2) 05/30/18 07:15 MCV 78.9 fl (80-96) L 05/30/18 07:15 MCHC 32.0 g/dl (32.0-36.0) 05/30/18 07:15 RDW 14.8 % (11.6-15.6) 05/30/18 07:15 Plt Count 330 K/MM3 (134-434) 05/30/18 07:15 MPV 8.4 fl (7.5-11.1) 05/30/18 07:15 CMP Sodium 136 mmol/L (136-145) 05/30/18 07:15 Potassium 3.8 mmol/L (3.5-5.1) 05/30/18 07:15 Chloride 99 mmol/L (98-107) 05/30/18 07:15 Carbon Dioxide 25 mmol/L (21-32) 05/30/18 07:15 Anion Gap 12 MMOL/L (8-16) 05/30/18 07:15 BUN 17 mg/dL (7-18) 05/30/18 07:15 Creatinine 0.6 mg/dL (0.55-1.3) 05/30/18 07:15 Creat Clearance w eGFR > 60 (>60) 05/30/18 07:15 Random Glucose 127 mg/dL (74-106) H 05/30/18 07:15 Calcium 8.3 mg/dL (8.5-10.1) L 05/30/18 07:15 Total Bilirubin 0.2 mg/dL (0.2-1) 05/29/18 20:10 AST 13 U/L (15-37) L 05/29/18 20:10 ALT 21 U/L (13-61) 05/29/18 20:10 Alkaline Phosphatase 74 U/L (45-117) 05/29/18 20:10 Total Protein 8.3 g/dl (6.4-8.2) H 05/29/18 20:10 Albumin 3.9 g/dl (3.4-5.0) 05/29/18 20:10 Current Medications Generic Name Dose Route Start Last Admin Trade Name Freq PRN Reason Stop Dose Admin Docusate Sodium 100 mg 05/31/18 11:00 05/31/18 17:06 Colace - PO 100 mg DAILY JAIR Administration Enoxaparin Sodium 40 mg 05/30/18 06:00 05/31/18 09:52 Lovenox - SQ 40 mg DAILY JAIR Administration Hydrochlorothiazide 12.5 mg 05/30/18 10:00 05/31/18 09:51 Hctz - PO 12.5 mg DAILY JAIR Administration Sodium Chloride 1,000 mls @ 100 mls/hr 05/30/18 01:30 05/30/18 21:54 Normal Saline - IV 100 mls/hr ASDIR JAIR Administration Vancomycin HCl 1,000 mg in 250 mls @ 166.667 mls/hr 05/30/18 15:00 05/31/18 15:41 Vancomycin (Pre-Docked) IVPB 166.667 mls/hr Q12H JAIR Administration Protocol Piperacillin Sod/Tazobactam 50 mls @ 100 mls/hr 05/30/18 13:30 05/31/18 17:05 Sod 3.375 gm/ Dextrose IVPB 100 mls/hr Q8H-IV JAIR Administration Protocol Insulin Aspart 1 vial 05/30/18 07:00 05/31/18 17:06 Novolog Vial Sliding Scale - SQ 4 unit ACHS JAIR Administration Protocol Lisinopril 20 mg 05/30/18 01:30 05/31/18 09:51 Prinivil PO 20 mg BID JAIR Administration Senna 1 tab 05/31/18 22:00 Senna - PO HS JAIR Home Medications Medication Instructions Recorded RX: Olmesartan/Hydrochlorothiazide 1 each PO DAILY 05/15/12 [Benicar Hct 40-12.5 mg Tablet] RX: metFORMIN HCL [Glucophage -] 500 mg PO BID 05/15/12 ASSESSMENT AND PLAN: 43 y/o F with PMH migraines (worse in past), HTN, NIDDM, diverticulitis (16 yrs ago), who presents to the ED c/o worsening periumbilical erythema over the past three weeks. #Acute abdominal wall cellulitis s/p Tummy tack 3 months ago, cx is pending, on IV antibiotic zosyn and Vanco.continue , id on the case #HTN: uncontrolled continue Lisinopril and Hctz #NIDDM: ISS ACHS; BGM, hold metformin for now, check hgb a1c DVT px: Lovenox 40 SQ qd Plastic surgeon: Vimal Walls [phone]
[2018-05-31] MEDS: SENNOSIDES 8.6MG TABLET (FP) PO SCH (21:38)
[2018-06-01] MEDS ORDERED: PIPERACILLIN/TAZOBACTAM 3.375 GM VIAL IVPB ONE ×3 (02:16→17:39)
[2018-06-01] MEDS ORDERED: DEXTROSE 5%-WATER - 50 ML IVPB ONE ×3 (02:17→17:39)
[2018-06-01] MEDS: PIPERACILLIN/TAZOB 3.375 GM 3.375 GM in DEXTROSE 5%-WATER - 50 ML IVPB SCH ×3 (02:30→18:15)
[2018-06-01] MEDS: SODIUM CHLORIDE 1,000 ML IV SCH ×2 (02:30→21:17)
[2018-06-01] MEDS: VANCOMYCIN 1 GRAM (PRE-DOCKED) 1,000 MG/250 ML BAG IVPB SCH ×2 (03:01→15:50)
[2018-06-01] MEDS: INSULIN SLIDING SCALE (NOVOLOG) 1 VIAL SQ SCH ×4 (06:06→21:25)
[2018-06-01] MEDS ORDERED: INSULIN (NOVOLOG) ASPART 100 UNITS/ML 10ML VIAL ONE ×3 (06:08→17:38)
[2018-06-01 07:22] LABS: BASO % 0.6 % (0-2.0); EOS % 1.5 % (0-4.5); HEMATOCRIT 30.2 % (32.4-45.2); HEMOGLOBIN 10.3 GM/dL (10.7-15.3); LYMPH % 29.8 % (8-40); MCH 26.4 pg (25.7-33.7); MCHC 34.2 g/dl (32.0-36.0); MEAN CELL VOLUME 77.1 fl (80-96); MEAN PLT VOLUME 8.4 fl (7.5-11.1); NEUT % 60.1 % (42.8-82.8); PLATELET COUNT 325 K/MM3 (134-434); RBC 3.91 M/mm3 (3.60-5.2); RDW 14.5 % (11.6-15.6); WHITE BLOOD COUNT 7.9 K/mm3 (4.0-10.0)
[2018-06-01 08:07] LABS: ANION GAP 7 MMOL/L (8-16); BLOOD UREA NITROGEN 12 mg/dL (7-18); CALCIUM 8.3 mg/dL (8.5-10.1); CHLORIDE 103 mmol/L (98-107); CO2 27 mmol/L (21-32); CREATININE 0.6 mg/dL (0.55-1.3); GLUCOSE,RANDOM 118 mg/dL (74-106); MAGNESIUM 1.9 mg/dL (1.8-2.4); PHOSPHOROUS 4.3 mg/dL (2.5-4.9); POTASSIUM 4.1 mmol/L (3.5-5.1); SODIUM 137 mmol/L (136-145)
[2018-06-01] MEDS: DOCUSATE SODIUM 100 MG CAPSULE (FP) PO SCH (09:01)
[2018-06-01] MEDS: LISINOPRIL 20 MG TABLET (FP) PO SCH ×2 (09:01→21:24)
[2018-06-01] MEDS: HYDROCHLOROTHIAZIDE 12.5 MG CAPSULE (FP) PO SCH (09:01)
[2018-06-01] MEDS: ENOXAPARIN NA (PORCINE) 40 MG/0.4 ML DISP.SYRIN SQ SCH (09:02)
--- NOTE | 2018-06-01 14:43 | PN ---
Progress Note, Physician History of Present Illness: No c/o abdominal pain No F/C WBC WNL Wound c/s, Blood c/s negative Wound AFB/ Fungal c/s pending - Current Medication List Current Medications: Active Medications Docusate Sodium (Colace -) 100 mg PO DAILY [facility] Last Admin: 06/01/18 09:01 Dose: 100 mg Enoxaparin Sodium (Lovenox -) 40 mg SQ DAILY [facility] Last Admin: 06/01/18 09:02 Dose: 40 mg Hydrochlorothiazide (Hctz -) 12.5 mg PO DAILY [facility] Last Admin: 06/01/18 09:01 Dose: 12.5 mg Sodium Chloride (Normal Saline -) 1,000 mls @ 100 mls/hr IV ASDIR [facility] Last Admin: 06/01/18 02:30 Dose: 100 mls/hr Vancomycin HCl (Vancomycin (Pre-Docked)) 1,000 mg in 250 mls @ 166.667 mls/hr IVPB Q12H [facility]; Protocol Last Admin: 06/01/18 03:01 Dose: 166.667 mls/hr Piperacillin Sod/Tazobactam (Sod 3.375 gm/ Dextrose) 50 mls @ 100 mls/hr IVPB Q8H-IV [facility]; Protocol Last Admin: 06/01/18 09:01 Dose: 100 mls/hr Insulin Aspart (Novolog Vial Sliding Scale -) 1 vial SQ ACHS [facility]; Protocol Last Admin: 06/01/18 11:49 Dose: 2 unit Lisinopril (Prinivil) 20 mg PO BID [facility] Last Admin: 06/01/18 09:01 Dose: 20 mg Senna (Senna -) 1 tab PO HS [facility] Last Admin: 05/31/18 21:38 Dose: 1 tab - Objective Vital Signs: Vital Signs Temperature 98.5 F 06/01/18 13:44 Pulse Rate 78 06/01/18 13:44 Respiratory Rate 20 06/01/18 13:44 Blood Pressure 140/92 06/01/18 13:44 O2 Sat by Pulse Oximetry (%) 98 05/31/18 21:00 Constitutional: Yes: No Distress Eyes: Yes: Conjunctiva Clear Cardiovascular: Yes: Regular Rate and Rhythm, S1, S2 Respiratory: Yes: CTA Bilaterally Gastrointestinal: Yes: Normal Bowel Sounds, Soft, Other (decreased erythema, abdominal wall. No drainage) Edema: No Labs: CBC, BMP 06/01/18 06:30 06/01/18 06:30 INR, PTT INR 0.97 (0.83-1.09) 05/29/18 20:10 Assessment/Plan Abdominal wall cellulitis S/P abdominoplasty May substitute po Augmentin 875 bid x 10d F/U AFB, Fungal c/s F/U with plastic surgeon
--- NOTE | 2018-06-01 15:28 | PN ---
Physical Exam: SUBJECTIVE: Patient seen and examined. No acute events overnight. Pt. states she feels the same as yesterday. OBJECTIVE: Vital Signs Period Temp Pulse Resp BP Sys/Vega Pulse Ox Last 24 Hr 97.9 F-98.5 F 75-80 18-20 118-140/68-92 98 GENERAL: The patient is awake, alert, and fully oriented, in no acute distress. EYES: Sclera anicteric, conjunctiva clear. No ptosis. ENT: Ears normal, nares patent, moist mucous membranes. LUNGS: Breath sounds equal, clear to auscultation bilaterally, no wheezes, no crackles, no accessory muscle use. HEART: Regular rate and rhythm, S1, S2 without murmur ABDOMEN: Soft, Tender to palpation, dressing c/d/i, scant purulent discharge, less than yesterday, nondistended, normoactive bowel sounds, no guarding, no rebound, no hepatosplenomegaly EXTREMITIES: 2+ dorsal pedal pulses, no calf tenderness, warm, well-perfused, no edema. NEUROLOGICAL: Normal speech, gait not observed. PSYCH: Normal mood, normal affect. SKIN: Warm, dry, normal turgor, no rashes or lesions noted Laboratory Results - last 24 hr 05/31/18 05/31/18 06/01/18 16:46 21:37 05:58 WBC RBC Hgb Hct MCV MCH MCHC RDW Plt Count MPV Absolute Neuts (auto) Neutrophils % Lymphocytes % Monocytes % Eosinophils % Basophils % Nucleated RBC % Sodium Potassium Chloride Carbon Dioxide Anion Gap BUN Creatinine Creat Clearance w eGFR POC Glucometer 210 129 131 Random Glucose Calcium Phosphorus Magnesium 06/01/18 06/01/18 06/01/18 06:30 06:30 11:43 WBC 7.9 RBC 3.91 Hgb 10.3 L Hct 30.2 L MCV 77.1 L MCH 26.4 MCHC 34.2 RDW 14.5 Plt Count 325 MPV 8.4 Absolute Neuts (auto) 4.8 Neutrophils % 60.1 Lymphocytes % 29.8 Monocytes % 8.0 Eosinophils % 1.5 Basophils % 0.6 Nucleated RBC % 0 Sodium 137 Potassium 4.1 Chloride 103 Carbon Dioxide 27 Anion Gap 7 L BUN 12 Creatinine 0.6 Creat Clearance w eGFR > 60 POC Glucometer 166 Random Glucose 118 H Calcium 8.3 L Phosphorus 4.3 Magnesium 1.9 Active Medications Current Medications Docusate Sodium (Colace -) 100 mg PO DAILY [facility] Last Admin: 06/01/18 09:01 Dose: 100 mg Enoxaparin Sodium (Lovenox -) 40 mg SQ DAILY [facility] Last Admin: 06/01/18 09:02 Dose: 40 mg Hydrochlorothiazide (Hctz -) 12.5 mg PO DAILY [facility] Last Admin: 06/01/18 09:01 Dose: 12.5 mg Sodium Chloride (Normal Saline -) 1,000 mls @ 100 mls/hr IV ASDIR [facility] Last Admin: 06/01/18 02:30 Dose: 100 mls/hr Vancomycin HCl (Vancomycin (Pre-Docked)) 1,000 mg in 250 mls @ 166.667 mls/hr IVPB Q12H [facility]; Protocol Last Admin: 06/01/18 03:01 Dose: 166.667 mls/hr Piperacillin Sod/Tazobactam (Sod 3.375 gm/ Dextrose) 50 mls @ 100 mls/hr IVPB Q8H-IV [facility]; Protocol Last Admin: 06/01/18 09:01 Dose: 100 mls/hr Insulin Aspart (Novolog Vial Sliding Scale -) 1 vial SQ ACHS [facility]; Protocol Last Admin: 06/01/18 11:49 Dose: 2 unit Lisinopril (Prinivil) 20 mg PO BID [facility] Last Admin: 06/01/18 09:01 Dose: 20 mg Senna (Senna -) 1 tab PO HS [facility] Last Admin: 05/31/18 21:38 Dose: 1 tab Home Medications Medication Instructions Recorded Olmesartan/Hydrochlorothiazide 1 each PO DAILY 05/15/12 [Benicar Hct 40-12.5 mg Tablet] metFORMIN HCL [Glucophage -] 500 mg PO BID 05/15/12 Metformin HCl [Glucophage] 1,000 mg PO AM 06/01/18 Metformin HCl [Glucophage] 2,000 mg PO HS 06/01/18 ASSESSMENT/PLAN: 43 y.o. F w/ PMHx. of Tummy tuck (~3 months ago), HTN, NIDDM, diverticulitis ( 16 yrs ago), migraines (worse in past) who presented to the ED w/ worsening raquel -umbilical erythema over the past three weeks. #Periumbilical cellulitis-stable Now w/o white count, afebrile, hemodynamically stable; occurred after tummy tuck procedure CTAP without abscess, with evidence of subcutaneous stranding/?cellulitis c/w Vanco 1.25g IVPB qd, Zosyn 3.375g IVPB q8h-(started 05/30/18) for broad spectrum, pending c+s f/u blood cx, wound cx: NTD UA- ID consult: Dr. Martinez/Elder, will transition to PO Augmentin 875mg BID in AM for a 10 day course. surgery consult: Dr. Benitez- no general surgery intervention, f/u with plastic surgery #HTN- stable c/w lisinopril 20mg PO BID c/w HCTZ 12.5mg PO #NIDDM ISS ACHS BGM #F/E/N IV NS 100 cc/hr continue to follow lytes Na+ restricted/Diabetic Diet #DVT Ppx. Lovenox 40 SQ Visit type - Emergency Visit Emergency Visit: Yes ED Registration Date: 05/30/18 Care time: The patient presented to the Emergency Department on the above date and was hospitalized for further evaluation of their emergent condition. - New Patient This patient is new to me today: No - Critical Care Critical Care patient: No - Discharge Referral Referred to [facility] Med P.C.: No
--- NOTE | 2018-06-01 20:09 | PN ---
Teaching Attending Note Name of Resident: Ramesh Vargas ATTENDING PHYSICIAN STATEMENT I saw and evaluated the patient. I reviewed the resident's note and discussed the case with the resident. I agree with the resident's findings and plan as documented. SUBJECTIVE: Patient is feeling better , discharge from the umbilical area is improving. OBJECTIVE: Vital Signs Temperature 98.5 F 06/01/18 13:44 Pulse Rate 78 06/01/18 13:44 Respiratory Rate 20 06/01/18 13:44 Blood Pressure 140/92 06/01/18 13:44 O2 Sat by Pulse Oximetry (%) 98 05/31/18 21:00 HEENT: No Jaundice, eye redness or discharge, PERRLA, EOMI. Normocephalic, atraumatic. Neck: Supple, nontender. No palpable adenopathy or thyromegaly. No JVD Chest: Good effort. Clear to auscultation and percussion. Heart: Regular. S1S2 positive, no rub or murmur Abdomen: Not distended, soft, from umbilical area ,with rash around it is getting dry. Normoactive bowel sounds. Ext: Peripheral pulses intact. No leg edema. Skin: Warm and dry. No petechiae, rash or ecchymosis. Neuro: Alert. Oriented x3. CN 2-12 grossly intact. Sensation grossly intact in all four extremities and DTR are symmetric. CBCD WBC 7.9 K/mm3 (4.0-10.0) 06/01/18 06:30 RBC 3.91 M/mm3 (3.60-5.2) 06/01/18 06:30 Hgb 10.3 GM/dL (10.7-15.3) L 06/01/18 06:30 Hct 30.2 % (32.4-45.2) L 06/01/18 06:30 MCV 77.1 fl (80-96) L 06/01/18 06:30 MCHC 34.2 g/dl (32.0-36.0) 06/01/18 06:30 RDW 14.5 % (11.6-15.6) 06/01/18 06:30 Plt Count 325 K/MM3 (134-434) 06/01/18 06:30 MPV 8.4 fl (7.5-11.1) 06/01/18 06:30 CMP Sodium 137 mmol/L (136-145) 06/01/18 06:30 Potassium 4.1 mmol/L (3.5-5.1) 06/01/18 06:30 Chloride 103 mmol/L (98-107) 06/01/18 06:30 Carbon Dioxide 27 mmol/L (21-32) 06/01/18 06:30 Anion Gap 7 MMOL/L (8-16) L 06/01/18 06:30 BUN 12 mg/dL (7-18) 06/01/18 06:30 Creatinine 0.6 mg/dL (0.55-1.3) 06/01/18 06:30 Creat Clearance w eGFR > 60 (>60) 06/01/18 06:30 Random Glucose 118 mg/dL (74-106) H 06/01/18 06:30 Calcium 8.3 mg/dL (8.5-10.1) L 06/01/18 06:30 Total Bilirubin 0.2 mg/dL (0.2-1) 05/29/18 20:10 AST 13 U/L (15-37) L 05/29/18 20:10 ALT 21 U/L (13-61) 05/29/18 20:10 Alkaline Phosphatase 74 U/L (45-117) 05/29/18 20:10 Total Protein 8.3 g/dl (6.4-8.2) H 05/29/18 20:10 Albumin 3.9 g/dl (3.4-5.0) 05/29/18 20:10 Current Medications Generic Name Dose Route Start Last Admin Trade Name Merrick PRN Reason Stop Dose Admin Docusate Sodium 100 mg 05/31/18 11:00 06/01/18 09:01 Colace - PO 100 mg DAILY JAIR Administration Enoxaparin Sodium 40 mg 05/30/18 06:00 06/01/18 09:02 Lovenox - SQ 40 mg DAILY JAIR Administration Hydrochlorothiazide 12.5 mg 05/30/18 10:00 06/01/18 09:01 Hctz - PO 12.5 mg DAILY JAIR Administration Sodium Chloride 1,000 mls @ 100 mls/hr 05/30/18 01:30 06/01/18 02:30 Normal Saline - IV 100 mls/hr ASDIR JAIR Administration Vancomycin HCl 1,000 mg in 250 mls @ 166.667 mls/hr 05/30/18 15:00 06/01/18 15:50 Vancomycin (Pre-Docked) IVPB 166.667 mls/hr Q12H JAIR Administration Protocol Piperacillin Sod/Tazobactam 50 mls @ 100 mls/hr 05/30/18 13:30 06/01/18 18:15 Sod 3.375 gm/ Dextrose IVPB 100 mls/hr Q8H-IV JAIR Administration Protocol Insulin Aspart 1 vial 05/30/18 07:00 06/01/18 18:07 Novolog Vial Sliding Scale - SQ Not Given ACHS JAIR Protocol Lisinopril 20 mg 05/30/18 01:30 06/01/18 09:01 Prinivil PO 20 mg BID JAIR Administration Senna 1 tab 05/31/18 22:00 05/31/18 21:38 Senna - PO 1 tab HS JAIR Administration Home Medications Medication Instructions Recorded Olmesartan/Hydrochlorothiazide 1 each PO DAILY 05/15/12 [Benicar Hct 40-12.5 mg Tablet] metFORMIN HCL [Glucophage -] 500 mg PO BID 05/15/12 Metformin HCl [Glucophage] 1,000 mg PO AM 06/01/18 Metformin HCl [Glucophage] 2,000 mg PO HS 06/01/18 Microbiology 05/30/18 14:30 Abscess AFB Smear Concentration - Final 05/30/18 14:30 Abscess Mycobacterial Culture - Preliminary 05/29/18 20:10 Blood - Peripheral Venous Blood Culture - Preliminary NO GROWTH OBTAINED AFTER 72 HOURS, INCUBATION TO CONTINUE FOR 2 DAYS. 05/29/18 20:10 Blood - Peripheral Venous Blood Culture - Preliminary NO GROWTH OBTAINED AFTER 72 HOURS, INCUBATION TO CONTINUE FOR 2 DAYS. 05/29/18 20:36 Wound-Other Gram Stain - Final 05/29/18 20:36 Wound-Other Wound Culture - Final NO GROWTH AFTER 48 HOURS INCUBATION 05/30/18 14:30 Abscess SOCRATES Preparation - Preliminary 05/30/18 14:30 Abscess Fungal Culture - Preliminary ASSESSMENT AND PLAN: 43 y/o F with PMH migraines (worse in past), HTN, NIDDM, diverticulitis (16 yrs ago), who presents to the ED c/o worsening periumbilical erythema over the past three weeks. #Acute abdominal wall cellulitis s/p Tummy tack 3 months ago, cx is pending, no growth so far. on IV antibiotic zosyn and Vanco. continue , id on the case was evaluated by the surgeon, . Please follow with your surgeon upon discharge. #HTN: uncontrolled continue Lisinopril and Hctz #NIDDM: ISS ACHS; BGM, hold metformin for now, check hgb a1c DVT px: Lovenox 40 SQ qd Plastic surgeon: Vimal Walls [phone]
[2018-06-01] MEDS: SENNOSIDES 8.6MG TABLET (FP) PO SCH ×2 (21:24→21:26)
[2018-06-02] MEDS ORDERED: PIPERACILLIN/TAZOBACTAM 3.375 GM VIAL IVPB ONE ×2 (00:50→09:07)
[2018-06-02] MEDS ORDERED: DEXTROSE 5%-WATER - 50 ML IVPB ONE ×2 (00:50→09:07)
[2018-06-02] MEDS: PIPERACILLIN/TAZOB 3.375 GM 3.375 GM in DEXTROSE 5%-WATER - 50 ML IVPB SCH ×3 (01:05→17:31)
[2018-06-02] MEDS: VANCOMYCIN 1 GRAM (PRE-DOCKED) 1,000 MG/250 ML BAG IVPB SCH ×2 (02:26→14:29)
[2018-06-02] MEDS: SODIUM CHLORIDE 1,000 ML IV SCH (06:07)
[2018-06-02] MEDS: INSULIN SLIDING SCALE (NOVOLOG) 1 VIAL SQ SCH ×3 (06:08→16:40)
[2018-06-02 07:16] LABS: BASO % 0.7 % (0-2.0); HEMATOCRIT 31.4 % (32.4-45.2); HEMOGLOBIN 10.6 GM/dL (10.7-15.3); LYMPH % 26.2 % (8-40); MCH 26.2 pg (25.7-33.7); MCHC 33.8 g/dl (32.0-36.0); MEAN CELL VOLUME 77.7 fl (80-96); MEAN PLT VOLUME 8.6 fl (7.5-11.1); MONO % 7.2 % (3.8-10.2); NEUT % 64.9 % (42.8-82.8); PLATELET COUNT 312 K/MM3 (134-434); RBC 4.04 M/mm3 (3.60-5.2); RDW 14.4 % (11.6-15.6); WHITE BLOOD COUNT 8.7 K/mm3 (4.0-10.0)
[2018-06-02 07:51] LABS: ANION GAP 7 MMOL/L (8-16); BLOOD UREA NITROGEN 12 mg/dL (7-18); CALCIUM 8.3 mg/dL (8.5-10.1); CHLORIDE 103 mmol/L (98-107); CO2 28 mmol/L (21-32); CREATININE 0.6 mg/dL (0.55-1.3); GLUCOSE,RANDOM 107 mg/dL (74-106); MAGNESIUM 1.7 mg/dL (1.8-2.4); PHOSPHOROUS 4.1 mg/dL (2.5-4.9); POTASSIUM 3.9 mmol/L (3.5-5.1); SODIUM 138 mmol/L (136-145)
--- NOTE | 2018-06-02 09:39 | PN ---
Teaching Attending Note Name of Resident: Raemsh Vargas ATTENDING PHYSICIAN STATEMENT I saw and evaluated the patient. I reviewed the resident's note and discussed the case with the resident. I agree with the resident's findings and plan as documented. SUBJECTIVE: Patient is comfortable with no acute distress, no nausea or vomiting. OBJECTIVE: Vital Signs Temperature 98.6 F 06/02/18 08:44 Pulse Rate 69 06/02/18 08:44 Respiratory Rate 20 06/02/18 08:44 Blood Pressure 115/74 06/02/18 08:44 O2 Sat by Pulse Oximetry (%) 95 06/02/18 09:00 HEENT: No Jaundice, eye redness or discharge, PERRLA, EOMI. Normocephalic, atraumatic. Neck: Supple, nontender. No palpable adenopathy or thyromegaly. No JVD Chest: Good effort. Clear to auscultation and percussion. Heart: Regular. S1S2 positive, No S3, rub or murmur Abdomen: Not distended, soft,NT, dried up lesions. Discharge from umbilical area ,with rash around it improving. Normoactive bowel sounds. Ext: Peripheral pulses intact. No leg edema. Skin: Warm and dry. No petechiae, rash or ecchymosis. Neuro: Alert. Oriented x3. CN 2-12 grossly intact. Sensation grossly intact in all four extremities and DTR are symmetric. CBCD WBC 8.7 K/mm3 (4.0-10.0) 06/02/18 06:30 RBC 4.04 M/mm3 (3.60-5.2) 06/02/18 06:30 Hgb 10.6 GM/dL (10.7-15.3) L 06/02/18 06:30 Hct 31.4 % (32.4-45.2) L 06/02/18 06:30 MCV 77.7 fl (80-96) L 06/02/18 06:30 MCHC 33.8 g/dl (32.0-36.0) 06/02/18 06:30 RDW 14.4 % (11.6-15.6) 06/02/18 06:30 Plt Count 312 K/MM3 (134-434) 06/02/18 06:30 MPV 8.6 fl (7.5-11.1) 06/02/18 06:30 CMP Sodium 138 mmol/L (136-145) 06/02/18 06:30 Potassium 3.9 mmol/L (3.5-5.1) 06/02/18 06:30 Chloride 103 mmol/L (98-107) 06/02/18 06:30 Carbon Dioxide 28 mmol/L (21-32) 06/02/18 06:30 Anion Gap 7 MMOL/L (8-16) L 06/02/18 06:30 BUN 12 mg/dL (7-18) 06/02/18 06:30 Creatinine 0.6 mg/dL (0.55-1.3) 06/02/18 06:30 Creat Clearance w eGFR > 60 (>60) 06/02/18 06:30 Random Glucose 107 mg/dL (74-106) H 06/02/18 06:30 Calcium 8.3 mg/dL (8.5-10.1) L 06/02/18 06:30 Total Bilirubin 0.2 mg/dL (0.2-1) 05/29/18 20:10 AST 13 U/L (15-37) L 05/29/18 20:10 ALT 21 U/L (13-61) 05/29/18 20:10 Alkaline Phosphatase 74 U/L (45-117) 05/29/18 20:10 Total Protein 8.3 g/dl (6.4-8.2) H 05/29/18 20:10 Albumin 3.9 g/dl (3.4-5.0) 05/29/18 20:10 Current Medications Generic Name Dose Route Start Last Admin Trade Name Merrick PRN Reason Stop Dose Admin Docusate Sodium 100 mg 05/31/18 11:00 06/01/18 09:01 Colace - PO 100 mg DAILY JAIR Administration Enoxaparin Sodium 40 mg 05/30/18 06:00 06/01/18 09:02 Lovenox - SQ 40 mg DAILY JAIR Administration Hydrochlorothiazide 12.5 mg 05/30/18 10:00 06/01/18 09:01 Hctz - PO 12.5 mg DAILY JAIR Administration Sodium Chloride 1,000 mls @ 100 mls/hr 05/30/18 01:30 06/02/18 06:07 Normal Saline - IV Not Given ASDIR JAIR Vancomycin HCl 1,000 mg in 250 mls @ 166.667 mls/hr 05/30/18 15:00 06/02/18 02:26 Vancomycin (Pre-Docked) IVPB 166.667 mls/hr Q12H JAIR Administration Protocol Piperacillin Sod/Tazobactam 50 mls @ 100 mls/hr 05/30/18 13:30 06/02/18 01:05 Sod 3.375 gm/ Dextrose IVPB 100 mls/hr Q8H-IV JAIR Administration Protocol Insulin Aspart 1 vial 05/30/18 07:00 06/02/18 06:08 Novolog Vial Sliding Scale - SQ Not Given ACHS [facility] Protocol Lisinopril 20 mg 05/30/18 01:30 06/01/18 21:24 Prinivil PO 20 mg BID JAIR Administration Senna 1 tab 05/31/18 22:00 06/01/18 21:26 Senna - PO Not Given HS [facility] Home Medications Medication Instructions Recorded Olmesartan/Hydrochlorothiazide 1 each PO DAILY 05/15/12 [Benicar Hct 40-12.5 mg Tablet] Amoxicillin/Potassium Clav 1 each PO BID #20 tablet 06/02/18 [Augmentin 875-125 Tablet] Metformin HCl [Metformin HCl ER] 1,000 mg PO HS 06/02/18 Metformin HCl [Metformin HCl ER] 500 mg PO AM 06/02/18 Microbiology 05/30/18 14:30 Abscess AFB Smear Concentration - Final 05/30/18 14:30 Abscess Mycobacterial Culture - Preliminary 05/29/18 20:10 Blood - Peripheral Venous Blood Culture - Preliminary NO GROWTH OBTAINED AFTER 72 HOURS, INCUBATION TO CONTINUE FOR 2 DAYS. 05/29/18 20:10 Blood - Peripheral Venous Blood Culture - Preliminary NO GROWTH OBTAINED AFTER 72 HOURS, INCUBATION TO CONTINUE FOR 2 DAYS. 05/29/18 20:36 Wound-Other Gram Stain - Final 05/29/18 20:36 Wound-Other Wound Culture - Final NO GROWTH AFTER 48 HOURS INCUBATION 05/30/18 14:30 Abscess SOCRATES Preparation - Preliminary 05/30/18 14:30 Abscess Fungal Culture - Preliminary ASSESSMENT AND PLAN: 43 y/o F with PMH migraines (worse in past), HTN, NIDDM, diverticulitis (16 yrs ago), who presents to the ED c/o worsening periumbilical erythema over the past three weeks. #Acute abdominal wall cellulitis s/p Tummy tack 3 months ago, cx is negative so far. s/p IV antibiotic zosyn and Vanco. will discharge the patient on Augmentin 875mg po bid x 10 days as per ID recommendations , follow with your surgeon tommorrow , discussed with the patient. #HTN: uncontrolled continue with home benicar #NIDDM: continue home metformin DVT px: Lovenox 40 SQ qd Plastic surgeon: Vimal Walls [phone]
[2018-06-02] MEDS ORDERED: SILVER SULFADIAZINE 1% TOP CREAM 400 GM JAR TP SCH (10:30)
[2018-06-02] MEDS: ENOXAPARIN NA (PORCINE) 40 MG/0.4 ML DISP.SYRIN SQ SCH (11:30)
[2018-06-02] MEDS: DOCUSATE SODIUM 100 MG CAPSULE (FP) PO SCH (11:30)
[2018-06-02] MEDS: LISINOPRIL 20 MG TABLET (FP) PO SCH (11:30)
[2018-06-02] MEDS: HYDROCHLOROTHIAZIDE 12.5 MG CAPSULE (FP) PO SCH (11:30)
--- NOTE | 2018-06-02 13:50 | DS ---
Physical Exam: SUBJECTIVE: Patient seen and examined. MARYA overnight.Pt. asking about crusted skin. Per discussion with Pt. she wants to find a new Plastic surgeon as she feels Vimal Walls ([phone]) is dismissive and disrespectful. OBJECTIVE: Vital Signs Period Temp Pulse Resp BP Sys/Vega Pulse Ox Last 24 Hr 97.4 F-98.7 F 69-69 19-20 113-140/72-100 95-98 PHYSICAL EXAM GENERAL: The patient is awake, alert, and fully oriented, in no acute distress. EYES: Sclera anicteric, conjunctiva clear. No ptosis. ENT: Ears normal, nares patent, moist mucous membranes. LUNGS: Breath sounds equal, clear to auscultation bilaterally, no wheezes, no crackles, no accessory muscle use. HEART: Regular rate and rhythm, S1, S2 without murmur ABDOMEN: Soft, Tender to palpation, wound dressing c/d/i, scant purulent discharge, less than yesterday, nondistended, normoactive bowel sounds, no guarding, no rebound, no hepatosplenomegaly EXTREMITIES: 2+ dorsal pedal pulses, no calf tenderness, warm, well-perfused, no edema. NEUROLOGICAL: Normal speech, gait not observed. PSYCH: Normal mood, normal affect. SKIN: Warm, dry, normal turgor LABS Laboratory Results - last 24 hr 06/01/18 06/01/18 06/02/18 17:08 21:23 05:21 WBC RBC Hgb Hct MCV MCH MCHC RDW Plt Count MPV Absolute Neuts (auto) Neutrophils % Lymphocytes % Monocytes % Eosinophils % Basophils % Nucleated RBC % Sodium Potassium Chloride Carbon Dioxide Anion Gap BUN Creatinine Creat Clearance w eGFR POC Glucometer 157 155 132 Random Glucose Calcium Phosphorus Magnesium 06/02/18 06/02/18 06/02/18 06:30 06:30 11:33 WBC 8.7 RBC 4.04 Hgb 10.6 L Hct 31.4 L MCV 77.7 L MCH 26.2 MCHC 33.8 RDW 14.4 Plt Count 312 MPV 8.6 Absolute Neuts (auto) 5.7 Neutrophils % 64.9 Lymphocytes % 26.2 Monocytes % 7.2 Eosinophils % 1.0 Basophils % 0.7 Nucleated RBC % 0 Sodium 138 Potassium 3.9 Chloride 103 Carbon Dioxide 28 Anion Gap 7 L BUN 12 Creatinine 0.6 Creat Clearance w eGFR > 60 POC Glucometer 155 Random Glucose 107 H Calcium 8.3 L Phosphorus 4.1 Magnesium 1.7 L HOSPITAL COURSE: Date of Admission:05/30/18 Date of Discharge: 06/02/18 Pt. admitted for raquel-umbilical cellulitis. Abdominal CT showed localized cellulitis with fat stranding, without abdominal wall muscle involvement and without abscess formation. Umbilical and infra-umbilical fat only containing hernias noted. Pt. started on IV Abx. and consulted with ID and surgery. Pt. discharged on oral Abx as detailed below, with recommendations to follow up with a Plastic surgeon. Advised Pt. to call her insurance company and to ask them for plastic surgeons that they cover. Hospital course discussed and agreed upon with Pt. and medical staff. Minutes to complete discharge: 32 Discharge Summary Reason For Visit: CELLULITIS OF ABDOMINAL WALL Current Active Problems Cellulitis (Acute) Diabetes (Chronic) HTN (hypertension) (Chronic) Condition: Improved - Instructions Diet, Activity, Other Instructions: You were admitted for a skin infection. We treated you with IV antibiotics You will continue taking oral antibiotics Augmentin 875mg TWICE a day for 10 days. Please take as prescribed and take to completion Please use non-adhesive(non-sticky) gauze and hypo-allergenic tape to apply Silvadene cream to the wound daily. Please use silvadene dressing on the wound daily when you change the dressing 2x per day. Please follow up with your Primary Care Physician within 1 week. Please follow up with your Plastic Surgeon TOMORROW; Please resume your medications as they were prescribed. Please return to the ER if you are experiencing fever, worsening abdominal pain , or foul discharge. Referrals: Clive Palomo MD [Staff Physician] - Raphael Friedman MD [Staff Physician] - Disposition: HOME - Home Medications Comprehensive Discharge Medication List: Ambulatory Orders Olmesartan/Hydrochlorothiazide [Benicar Hct 40-12.5 mg Tablet] 1 each PO DAILY 05/15/12 Amoxicillin/Potassium Clav [Augmentin 875-125 Tablet] 1 each PO BID #20 tablet 06/02/18 Gauze Bandage [Gauze] 1 each TP DAILY #15 bandage 06/02/18 Metformin HCl [Metformin HCl ER] 1,000 mg PO HS 06/02/18 Metformin HCl [Metformin HCl ER] 500 mg PO AM 06/02/18 This patient is new to me today: No Emergency Visit: Yes ED Registration Date: 05/30/18 Care time: The patient presented to the Emergency Department on the above date and was hospitalized for further evaluation of their emergent condition. Critical Care patient: No - Discharge Referral Referred to [facility] No
[2018-06-02 17:28] VITALS: BP 136/78; PULSE 72; TEMP 98
== END 2018-06-02 17:57 | disposition home or self-care (01) | DRG 721 ==
LOC: JER 17:45 → JERBED 21:28 → J6S 05-30 01:01 → OBSVTOIN 05-30 14:27
PROVIDERS: ADMIT Internal Medicine; ATTEND Internal Medicine
DX: T81.49XA Infection following a procedure, other surgical site, initial encounter (principal); L03.311 Cellulitis of abdominal wall; I10 Essential (primary) hypertension; E11.9 Type 2 diabetes mellitus without complications; E78.5 Hyperlipidemia, unspecified; G43.909 Migraine, unspecified, not intractable, without status migrainosus
CPT/HCPCS: 36415; 74177-TC; 80048; 80053; 81003; 82962; 83735; 84100; 84703; 85025; 85610; 86850; 86900; 86901; 87040; 87070; 87102; 87116; 87205; 87206; 87210; 93005; 93010; 99283-25; G0378; J7030

== ENCOUNTER 2020-11-26 10:35 | Emergency (ER) | payer OTHER ==
[2020-11-26] MEDS ORDERED: SODIUM CHLORIDE 1,000 ML IV STA (10:58)
[2020-11-26 11:51] LABS: BASO % 0.7 % (0-2.0); EOS % 1.2 % (0-4.5); HEMATOCRIT 28.1 % (32.4-45.2); HEMOGLOBIN 9.5 GM/dL (10.7-15.3); MCH 28.6 pg (25.7-33.7); MCHC 33.9 g/dl (32.0-36.0); MEAN CELL VOLUME 84.3 fl (80-96); MEAN PLT VOLUME 8.2 fl (7.5-11.1); MONO % 5.9 % (3.8-10.2); NEUT % 55.2 % (42.8-82.8); PLATELET COUNT 355 K/MM3 (134-434); RBC 3.33 M/mm3 (3.60-5.2); RDW 13.9 % (11.6-15.6)
[2020-11-26 12:03] LABS: CALCIUM 9.2 mg/dL (8.5-10.1)
[2020-11-26 12:04] LABS: ALBUMIN 3.4 g/dl (3.4-5.0); BLOOD UREA NITROGEN 12.7 mg/dL (7-18)
[2020-11-26 12:07] LABS: CREATININE 0.6 mg/dL (0.55-1.3)
[2020-11-26] MEDS ORDERED: LACTATED RINGERS SOLUTION 1000 ML INFUS.BAG IV ONE (12:07)
[2020-11-26 12:09] LABS: BILIRUBIN,TOTAL 0.6 mg/dL (0.2-1); TOT PROT 7.7 g/dl (6.4-8.2)
[2020-11-26 12:47] LABS: URINE APPEARANCE Turbid; URINE BILIRUBIN 1+ (NEGATIVE); URINE COLOR Red; URINE GLUCOSE (UA) Negative (NEGATIVE); URINE KETONE Trace (NEGATIVE); URINE NITRITE Positive (NEGATIVE); URINE PROTEIN 3+ (NEGATIVE); URINE UROBILINOGEN 0.2 mg/dL (0.2-1.0)
[2020-11-26 12:54] LABS: EPI CELLS 0.6 /uL (0-25.1)
[2020-11-26] MEDS ORDERED: ACETAMINOPHEN 1000 MG/100 ML VIAL (NON FORMULARY) IVPB ONE (13:13)
[2020-11-26] MEDS ORDERED: FERROUS SO4 325 MG TABLET (FP) PO ONE (13:28)
[2020-11-26] MEDS ORDERED: ACETAMINOPHEN INJECTION 100 ML IVPB ONE (13:34)
[2020-11-26] MEDS ORDERED: FERROUS SO4 325 MG TABLET (FP) ONE (13:35)
[2020-11-26 16:53] VITALS: BP 137/90; PULSE 85; TEMP 98
== END 2020-11-26 17:49 | disposition home or self-care (01) ==
LOC: JER 10:35
PROC: 3E0333Z Introduction of Anti-inflammatory into Peripheral Vein, Percutaneous Approach (ICD-10-PCS; principal; 2020-11-26)
PROC: 3E0337Z Introduction of Electrolytic and Water Balance Substance into Peripheral Vein, Percutaneous Approach (ICD-10-PCS; 2020-11-26)
DX: N92.4 Excessive bleeding in the premenopausal period (principal); R53.1 Weakness; D50.0 Iron deficiency anemia secondary to blood loss (chronic)
CPT/HCPCS: 36415; 76830-TC; 80053; 81003; 84703; 85025; 86850; 86900; 86901; 87086; 96361; 96374; 99285-25; J0131

== ENCOUNTER 2021-03-19 04:33 | Inpatient (IN) | payer OTHER ==
[2021-03-14 12:41] VITALS: BMI 30.9
[2021-03-19] MEDS ORDERED: PHENAZOPYRIDINE HCL 100 MG TABLET (FP) PO ONE ×2 (06:30→07:00)
[2021-03-19] MEDS ORDERED: CEFAZOLIN 2 GM in DEXTROSE 5%-WATER - 100 ML IVPB ONE (06:30)
[2021-03-19] MEDS ORDERED: PHENAZOPYRIDINE HCL 100 MG TABLET (FP) ONE (06:50)
[2021-03-19] MEDS ORDERED: ceFAZolin SODIUM 1 GM VIAL ONE ×2 (06:50→18:13)
[2021-03-19] MEDS ORDERED: PROPOFOL 20 ML ONE ×2 (07:15→09:39)
[2021-03-19] MEDS ORDERED: HYDROmorphone HCl 2 MG/ML VIAL ONE (07:15)
[2021-03-19] MEDS ORDERED: ROCURONIUM BROMIDE 50 MG/5 ML SYRINGE ONE (07:15)
[2021-03-19] MEDS ORDERED: MIDAZOLAM HCL 2 MG/2 ML SINGLE DOSE VIAL ONE ×2 (07:16)
[2021-03-19] MEDS ORDERED: BUPIVACAINE HCL/PF 0.5% (5MG/ML) 10 ML VIAL ONE (07:20)
[2021-03-19] MEDS ORDERED: BUPIVACAINE LIPOSOME/PF (EXPAREL) 266 MG/20 ML VIAL ONE (07:20)
[2021-03-19] MEDS ORDERED: SODIUM CHLORIDE 0.9% P/F 10 ML VIAL IJ ONE (07:22)
[2021-03-19] MEDS ORDERED: ceFAZolin SODIUM 1 GM VIAL IVPB ONE (07:55)
[2021-03-19] MEDS ORDERED: NEOSTIGMINE METHYLSULFATE 0.5 MG/ML - 10 ML MDV ONE (09:25)
[2021-03-19] MEDS ORDERED: BISACODYL 5 MG TABLET.DR (FP) PO PRN (10:10)
[2021-03-19] MEDS ORDERED: ACETAMINOPHEN 325 MG TABLET (FP) PO PRN (10:10)
[2021-03-19] MEDS ORDERED: ONDANSETRON 4 MG/2 ML VIAL IVPUSH PRN (10:10)
[2021-03-19] MEDS ORDERED: DOCUSATE SODIUM 100 MG CAPSULE (FP) PO PRN (10:10)
[2021-03-19] MEDS ORDERED: oxyCODONE HCL 5 MG TABLET PO PRN (10:10)
[2021-03-19] MEDS ORDERED: PATIENT'S OWN MEDICATION (NON-FORMULARY) (Ferrous Sulfate [Feosol] 325 MG Tablet) PO SCH (10:15)
[2021-03-19] MEDS: LACTATED RINGERS SOLUTION 1,000 ML IV SCH (17:00)
[2021-03-19] MEDS: IBUPROFEN 800 MG/8 ML IJ IVPB PRN (17:31)
[2021-03-19] MEDS ORDERED: DEXTROSE 5%-WATER - 50 ML IVPB ONE (18:13)
[2021-03-19] MEDS: CEFAZOLIN 1 GM in DEXTROSE 5%-WATER - 1 GM/50 ML IVPB IVPB SCH (18:45)
[2021-03-19] MEDS ORDERED: PNEUMOC 13-VAL CONJ-DIP CRM/PF 0.5 ML DISP.SYRIN IM ONE (19:51)
[2021-03-19] MEDS ORDERED: PNEUMOCOCCAL 23 VACCINE 0.5 ML VIAL IM ONE (20:00)
[2021-03-19 21:07] LABS: HEMATOCRIT 26.8 % (32.4-45.2); HEMOGLOBIN 8.6 GM/dL (10.7-15.3); MCH 22.7 pg (25.7-33.7); MCHC 32.1 g/dl (32.0-36.0); MEAN CELL VOLUME 70.6 fl (80-96); MEAN PLT VOLUME 7.7 fl (7.5-11.1); PLATELET COUNT 347 10^3/uL (134-434); RBC 3.79 M/mm3 (3.60-5.2); RDW 18.6 % (11.6-15.6); WHITE BLOOD COUNT 12.1 K/mm3 (4.0-10.0)
[2021-03-19 21:36] LABS: CALCIUM 8.1 mg/dL (8.5-10.1)
[2021-03-19 21:40] LABS: CREATININE 0.9 mg/dL (0.55-1.3)
[2021-03-19] MEDS: LOSARTAN POTASSIUM 50 MG TABLET PO SCH (21:59)
[2021-03-19] MEDS ORDERED: PATIENT'S OWN MEDICATION (NON-FORMULARY) (Olmesartan/Hydrochlorothiazide [Benicar Hct 40-1 PO SCH (22:00)
[2021-03-19] MEDS ORDERED: PATIENT'S OWN MEDICATION (NON-FORMULARY) (Metformin Hcl [Metformin Er Osmotic] 1,000 MG Ta PO SCH (22:00)
[2021-03-19] MEDS: METOPROLOL TARTRATE 25 MG TABLET (FP) PO SCH (22:00)
[2021-03-19] MEDS: HYDROCHLOROTHIAZIDE 12.5 MG CAPSULE (FP) PO SCH (22:00)
[2021-03-20] MEDS ORDERED: ceFAZolin SODIUM 1 GM VIAL ONE ×2 (00:51→09:20)
[2021-03-20] MEDS ORDERED: DEXTROSE 5%-WATER - 50 ML IVPB ONE ×2 (00:51→09:20)
[2021-03-20] MEDS: CEFAZOLIN 1 GM in DEXTROSE 5%-WATER - 1 GM/50 ML IVPB IVPB SCH ×2 (00:55→09:25)
[2021-03-20] MEDS: LACTATED RINGERS SOLUTION 1,000 ML IV SCH ×2 (06:26→17:21)
[2021-03-20 08:58] LABS: HEMATOCRIT 26.3 % (32.4-45.2); HEMOGLOBIN 8.4 GM/dL (10.7-15.3); MCH 22.5 pg (25.7-33.7); MEAN CELL VOLUME 70.4 fl (80-96); MEAN PLT VOLUME 7.4 fl (7.5-11.1); PLATELET COUNT 313 10^3/uL (134-434); RBC 3.74 M/mm3 (3.60-5.2); RDW 18.6 % (11.6-15.6); WHITE BLOOD COUNT 12.6 K/mm3 (4.0-10.0)
[2021-03-20 09:19] LABS: BLOOD UREA NITROGEN 7.9 mg/dL (7-18); CALCIUM 7.9 mg/dL (8.5-10.1)
[2021-03-20 09:24] LABS: CREATININE 0.6 mg/dL (0.55-1.3)
[2021-03-20] MEDS: SIMETHICONE 80 MG TAB.CHEW (FP) PO PRN ×2 (09:25→20:18)
[2021-03-20] MEDS: IBUPROFEN 800 MG/8 ML IJ IVPB PRN (09:25)
[2021-03-20] MEDS: ENOXAPARIN NA (PORCINE) 40 MG/0.4 ML DISP.SYRIN SQ SCH (09:25)
[2021-03-20] MEDS: METOPROLOL TARTRATE 25 MG TABLET (FP) PO SCH (21:25)
[2021-03-20] MEDS: HYDROCHLOROTHIAZIDE 12.5 MG CAPSULE (FP) PO SCH (21:25)
[2021-03-20] MEDS: LOSARTAN POTASSIUM 50 MG TABLET PO SCH (21:25)
[2021-03-21] MEDS: LACTATED RINGERS SOLUTION 1,000 ML IV SCH (01:54)
[2021-03-21] MEDS ORDERED: PT OWN MED DRAWER 7, Y5N ONE (06:12)
[2021-03-21] MEDS: SIMETHICONE 80 MG TAB.CHEW (FP) PO PRN ×2 (09:02→14:53)
[2021-03-21] MEDS: ENOXAPARIN NA (PORCINE) 40 MG/0.4 ML DISP.SYRIN SQ SCH (09:02)
[2021-03-21] MEDS: oxyCODONE HCL 5 MG TABLET PO PRN ×2 (09:02→14:53)
[2021-03-21] MEDS ORDERED: FERROUS SO4 325 MG TABLET (FP) PO SCH (10:00)
[2021-03-21] MEDS ORDERED: DEXAMETHASONE 0.5 MG TABLET PO PRN (10:34)
[2021-03-21 12:02] LABS: BASO % 0.7 % (0-2.0); EOS % 1.1 % (0-4.5); HEMATOCRIT 26.9 % (32.4-45.2); HEMOGLOBIN 8.7 GM/dL (10.7-15.3); MCH 22.8 pg (25.7-33.7); MCHC 32.4 g/dl (32.0-36.0); MEAN CELL VOLUME 70.4 fl (80-96); MEAN PLT VOLUME 7.9 fl (7.5-11.1); MONO % 7.2 % (3.8-10.2); PLATELET COUNT 314 10^3/uL (134-434); RBC 3.82 M/mm3 (3.60-5.2); RDW 18.9 % (11.6-15.6); WHITE BLOOD COUNT 9.4 K/mm3 (4.0-10.0)
[2021-03-21 14:26] VITALS: BP 141/85; PULSE 92; TEMP 98.8
== END 2021-03-21 15:46 | disposition home or self-care (01) | DRG 519 ==
LOC: JASUSAT 04:33 → J6S 17:13 → JASUSAT 17:14 → J6S 17:14
PROVIDERS: ADMIT Obstetrics & Gynecology; ATTEND Obstetrics & Gynecology
PROC: 0UB04ZZ Excision of Right Ovary, Percutaneous Endoscopic Approach (ICD-10-PCS; 2021-03-19)
PROC: 8E0W4CZ Robotic Assisted Procedure of Trunk Region, Percutaneous Endoscopic Approach (ICD-10-PCS; 2021-03-19)
PROC: 0UT94ZZ Resection of Uterus, Percutaneous Endoscopic Approach (ICD-10-PCS; principal; 2021-03-19 07:30)
PROC: 0UT74ZZ Resection of Bilateral Fallopian Tubes, Percutaneous Endoscopic Approach (ICD-10-PCS; 2021-03-19 07:30)
DX: D25.9 Leiomyoma of uterus, unspecified (principal); N92.0 Excessive and frequent menstruation with regular cycle; N83.201 Unspecified ovarian cyst, right side; Z30.2 Encounter for sterilization
CPT/HCPCS: 36415; 80048; 81025; 82962; 85025; 85027; 86850; 86900; 86901; 88302-TC; 88304-TC; 88307-TC; 90732; 94010; 94760; G0009

== ENCOUNTER 2022-07-08 20:33 | Emergency (ER) | payer OTHER ==
[2022-07-08 21:05] VITALS: BMI 27.8
[2022-07-09] MEDS ORDERED: KETOROLAC TROMETHAMINE 15 MG/ML VIAL IVPUSH ONE (00:16)
[2022-07-09] MEDS ORDERED: SODIUM CHLORIDE 0.9% 500 ML INFUS.BAG IV ONE (00:16)
[2022-07-09 00:58] LABS: EPI CELLS 5 /uL (0-25.1); HYALINE CASTS 0 /uL (0-3.1); URINE APPEARANCE CLOUDY; URINE BACTERIA 5 /uL (0-1359); URINE BILIRUBIN NEGATIVE (NEGATIVE); URINE COLOR YELLOW; URINE GLUCOSE (UA) NEGATIVE (NEGATIVE); URINE KETONE 1+ (NEGATIVE); URINE LEUK ESTERASE NEGATIVE (NEGATIVE); URINE NITRITE NEGATIVE (NEGATIVE); URINE PROTEIN TRACE (NEGATIVE); URINE UROBILINOGEN 0.2 mg/dL (0.2-1.0); URINE WBC 13 /uL (0-25.8)
[2022-07-09] MEDS ORDERED: KETOROLAC TROMETHAMINE 15 MG/ML VIAL ONE (01:00)
[2022-07-09 01:11] LABS: BASO % 0.5 % (0-2.0); EOS % 0.7 % (0-4.5); HEMATOCRIT 37.1 % (32.4-45.2); HEMOGLOBIN 12.2 GM/dL (10.7-15.3); LYMPH % 41.4 % (8-40); MCH 28.5 pg (25.7-33.7); MCHC 32.9 g/dl (32.0-36.0); MEAN CELL VOLUME 86.5 fl (80-96); MEAN PLT VOLUME 8.5 fl (7.5-11.1); MONO % 5.8 % (3.8-10.2); NEUT % 51.6 % (42.8-82.8); PLATELET COUNT 320 10^3/uL (134-434); RBC 4.29 M/mm3 (3.60-5.2); RDW 13.9 % (11.6-15.6); WHITE BLOOD COUNT 7.1 K/mm3 (4.0-10.0)
[2022-07-09 01:18] LABS: INR 1.07 (0.83-1.09); PROTHROMBIN TIME (PATIENT) 12.3 SEC (9.7-13.0)
[2022-07-09 01:33] LABS: CALCIUM 8.8 mg/dL (8.5-10.1)
[2022-07-09 01:34] LABS: ALBUMIN 3.1 g/dl (3.4-5.0); BLOOD UREA NITROGEN 13.9 mg/dL (7-18)
[2022-07-09 01:37] LABS: CREATININE 0.9 mg/dL (0.55-1.3)
[2022-07-09 01:38] LABS: BILIRUBIN,TOTAL 0.4 mg/dL (0.2-1); TOT PROT 6.7 g/dl (6.4-8.2)
[2022-07-09 01:43] LABS: URINE RBC 84.3 /uL (0-23.9)
[2022-07-09] MEDS ORDERED: ACETAMINOPHEN 500 MG TABLET (FP) PO ONE (03:12)
[2022-07-09] MEDS ORDERED: ACETAMINOPHEN 325 MG TABLET (FP) ONE (03:28)
[2022-07-09 03:35] VITALS: BP 125/84; PULSE 72; RESP 18; TEMP 98
== END 2022-07-09 04:15 | disposition home or self-care (01) ==
LOC: JER 20:33
PROC: 3E033GC Introduction of Other Therapeutic Substance into Peripheral Vein, Percutaneous Approach (ICD-10-PCS; principal; 2022-07-08)
DX: R10.84 Generalized abdominal pain (principal)
CPT/HCPCS: 0241U-QW; 36415; 74176-TC; 80053; 81003; 84703; 85025; 85610; 85730; 86850; 86900; 86901; 87086; 96374; 99285-25